=== PATIENT | female | born 1970 ===

== ENCOUNTER 2016-11-19 22:25 | Inpatient (IN) | payer OTHER ==
[2016-11-19 22:26] VITALS: BMI 26.2
[2016-11-19] MEDS ORDERED: Sodium Chloride 0.9% 1,000 ML IV STA ×2 (22:48→23:50)
[2016-11-19] MEDS ORDERED: DiphenhydrAMINE 50 mg/ml Inj IV STA (23:03)
[2016-11-19] MEDS ORDERED: Promethazine 25MG/50ML NS IVPB ONE (23:15)
[2016-11-19] MEDS ORDERED: DiphenhydrAMINE 50 mg/ml Inj ONE (23:20)
[2016-11-19 23:25] LABS: BASO % 0.4 % (0.0-2.0); EOS % 0.2 % (0.0-4.0); LYMPH # 1.3 K/uL (1.0-4.3); LYMPH % 16.1 % (20.0-40.0); MEAN CELL VOLUME 85.2 fl (81.0-99.0); MEAN CORPUSCULAR HEMOGLOBIN 29.6 pg (27.0-31.0); MEAN CORPUSCULAR HGB CONC 34.8 g/dL (33.0-37.0); MEAN PLATELET VOLUME 9.9 fl (7.2-11.7); MONO # 0.6 K/uL (0.0-0.8); MONO % 7.3 % (0.0-10.0); NRBC % 0.6 % (0.0-0.0); RBC 7.09 Mil/uL (3.80-5.20); RED CELL DISTRIBUTION WIDTH 13.7 % (11.5-14.5); WHITE BLOOD COUNT 7.9 K/uL (4.8-10.8)
[2016-11-19 23:33] LABS: ALB/GLOB RATIO 1.1 (1.0-2.1); ALBUMIN 5.2 g/dL (3.5-5.0); ALT/SGPT 36 U/L (9-52); AST/SGOT 36 U/L (14-36); BLOOD UREA NITROGEN 13 mg/dl (7-17); CALCIUM 10.4 mg/dL (8.4-10.2); GFR AFRICAN-AMERICAN > 60; GFR NON-AFRICAN AMERICAN 54; LIPASE 43 U/L (23-300)
--- NOTE | 2016-11-19 23:46 | ED PDOC ---
HPI: Abdomen Time Seen by Provider: 11/19/16 22:44 Chief Complaint (Nursing): Abdominal Pain Chief Complaint (Provider): Abdominal Pain History Per: Patient History/Exam Limitations: no limitations Onset/Duration Of Symptoms: Days (One ) Outside of [place] travel?: No Current Symptoms Are (Timing): Still Present Location Of Pain/Discomfort: Diffuse Quality Of Discomfort: Cramping Associated Symptoms: Nausea, Vomiting, Diarrhea. denies: Fever Additional Complaint(s): 45 y/o female presenting to the ED with vomiting, headache, diarrhea for one day. Patient has a past medical history of methadone dependency, opioid abuse and migraines. and is currently enrolled in a methadone program at [facility]. PT states she awoke this morning with nausea and vomiting and was unable to make it to her clinic and due to missing her methadone dosage she states she now has diarrhea. Patient reports 10 episodes of non-bloody vomiting and 10 episodes of diarrhea non bloody. Patient also report cramping pain and reports her 5 y/o son recently had a stomach virus. Past surgical history includes a Cholecystectomy. Past Medical History Reviewed: Historical Data, Nursing Documentation, Vital Signs Vital Signs: Last Vital Signs Temp 100 F H 11/20/16 02:37 Pulse 119 H 11/20/16 02:37 Resp 18 11/20/16 02:37 BP 197/142 H 11/20/16 02:37 Pulse Ox 98 11/20/16 02:37 - Surgical History Surgical History: Cholecystectomy - Family History Family History: States: Unknown Family Hx - Social History Drugs: Opiates - Immunization History Hx Tetanus Toxoid Vaccination: Yes Hx Influenza Vaccination: Yes Hx Pneumococcal Vaccination: No - Home Medications Home Medications: Ambulatory Orders Medication Instructions Recorded Methadone [Methadone] 86 mg PO DAILY 11/20/16 - Allergies Allergies/Adverse Reactions: Allergies Allergy/AdvReac Type Severity Reaction Status Date / Time oyster extract Allergy hives Verified 06/13/16 19:25 Penicillins Allergy hives Verified 06/13/16 19:25 Review of Systems ROS Statement: Except As Marked, All Systems Reviewed And Found Negative Constitutional: Negative for: Fever Cardiovascular: Negative for: Chest Pain Gastrointestinal: Positive for: Nausea, Vomiting, Abdominal Pain, Diarrhea, Other ((+)Cramping). Negative for: Hematochezia, Hematemesis Neurological: Positive for: Headache Physical Exam - Reviewed Nursing Documentation Reviewed: Yes Vital Signs Reviewed: Yes - Physical Exam Appears: Positive for: Non-toxic, No Acute Distress Head Exam: Positive for: ATRAUMATIC, NORMAL INSPECTION, NORMOCEPHALIC Skin: Positive for: Normal Color, Warm, Dry ENT: Positive for: Other ((+)Dry mucus membranes) Neck: Positive for: Normal, Painless ROM, Supple Cardiovascular/Chest: Positive for: Regular Rate, Rhythm. Negative for: Murmur Respiratory: Positive for: Normal Breath Sounds. Negative for: Respiratory Distress Gastrointestinal/Abdominal: Positive for: Tenderness ((+)Abdominal diffuse tenderness) Extremity: Positive for: Normal ROM Neurologic/Psych: Positive for: Alert, Oriented. Negative for: Motor/Sensory Deficits - Laboratory Results Result Diagrams: 11/19/16 23:20 11/19/16 23:20 - ECG O2 Sat by Pulse Oximetry: 97 (RA) Pulse Ox Interpretation: Normal Medical Decision Making Medical Decision Making: Time: 2245 Initial impression: Dependency and missed dosage of Methadone Initial plan: --EKG --DRUG SCREEN, URINE --ED URINE DIPSTICK --URINE --EKG-ED --DIPHENHYDRAMINE 25MG IV --SODIUM CHLORIDE 1,000ML IV --PROMETHAZINE 25MG SODIUM CHLORIDE 0.9% 50ML --HEPLOCK INSERTION IV --URINALYSIS 0110: Re-Evaluation: --Labs reviewed by provider and show significant for marked elevation in the patients hemoglobin level consistent with dehydration as well as reactive Erythrocytosis/Polycythemia; likely the result of patients acute dehydration. The patient will be placed on observation status for further rehydration and repeat labs in the AM. --Case discussed with Dr. 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 Scribe Attestation: Documented by Crissy Franklin, acting as a scribe for Clinton Barillas MD. Scribe Attestation: All medical record entries made by the Scribe were at my direction and personally dictated by me. I have reviewed the chart and agree that the record accurately reflects my personal performance of the history, physical exam, medical decision making, and the department course for this patient. I have also personally directed, reviewed, and agree with the discharge instructions and disposition. Disposition - Clinical Impression Clinical Impression: Erythrocytosis, Polycythemia, Dehydration, Hypertension - Patient ED Disposition Is Patient to be Admitted: Yes - Disposition Disposition Time: 00:50 Condition: FAIR - Pt Status Changed To: Hospital Disposition Of: Observation
[2016-11-20] MEDS ORDERED: Sodium Chloride 0.9% 1,000 ML IV STA (01:37)
[2016-11-20 02:56] LABS: SQUAMOUS EPITHIAL 4 /hpf (0-5); URINE BACTERIA RARE (<OCC); URINE BILIRUBIN NEGATIVE (NEGATIVE); URINE BLOOD NEGATIVE (NEGATIVE); URINE CLARITY CLOUDY (Clear); URINE COLOR YELLOW (YELLOW); URINE GLUCOSE (UA) 50 mg/dL (Normal); URINE LEUKOCYTE ESTERASE NEG Leu/uL (Negative); URINE NITRATE NEGATIVE (NEGATIVE); URINE PROTEIN >=500 mg/dL (NEGATIVE); URINE UROBILINOGEN 0.2-1.0 mg/dL (0.2-1.0)
[2016-11-20 03:12] LABS: BARBITURATES, UR NEGATIVE (NEGATIVE); BENZODIAZEPINES, UR NEGATIVE (NEGATIVE); OPIATES, UR NEGATIVE (NEGATIVE); PHENCYCLIDINE, UR NEGATIVE (NEGATIVE)
[2016-11-20] MEDS ORDERED: Labetalol 5mg/ml (4ml) ONE (04:27)
[2016-11-20] MEDS: Labetalol 5 mg/ml Inj 20ML IVP STA ×2 (04:34→04:53)
[2016-11-20] MEDS ORDERED: Labetalol 5mg/ml (4ml) IVP STA (04:39)
[2016-11-20] MEDS ORDERED: Potassium CL 10mEq/100ml 100 ML IVPB SCH (06:00)
[2016-11-20] MEDS: Sodium Chloride 0.45% 1,000 ML IV SCH ×2 (06:25→13:15)
[2016-11-20 06:31] LABS: BASO % 0.5 % (0.0-2.0); HEMOGLOBIN 19.9 g/dL (12.0-16.0); LYMPH # 1.1 K/uL (1.0-4.3); MEAN CELL VOLUME 85.9 fl (81.0-99.0); MEAN CORPUSCULAR HGB CONC 34.9 g/dL (33.0-37.0); MONO # 0.4 K/uL (0.0-0.8); MONO % 7.2 % (0.0-10.0); NEUT # 4.6 K/uL (1.8-7.0); NEUT % 74.3 % (50.0-75.0); NRBC % 2.4 % (0.0-0.0); RBC 6.62 Mil/uL (3.80-5.20); RED CELL DISTRIBUTION WIDTH 13.6 % (11.5-14.5); WHITE BLOOD COUNT 6.2 K/uL (4.8-10.8)
[2016-11-20 06:40] LABS: BLOOD UREA NITROGEN 13 mg/dl (7-17); CALCIUM 9.3 mg/dL (8.4-10.2); GFR AFRICAN-AMERICAN > 60; GFR NON-AFRICAN AMERICAN > 60
[2016-11-20] MEDS ORDERED: Potassium Chloride 20 mEq ER Tab PO STA (06:59)
--- NOTE | 2016-11-20 07:47 | CARD ---
APPROVED REPORT EKG Measurement Heart [id number] <Conclusion> Sinus tachycardia Right atrial enlargement Nonspecific ST and T wave abnormality Prolonged QTc Abnormal ECG
[2016-11-20] MEDS ORDERED: Labetalol 5 mg/ml Inj 20ML IVP STA (12:48)
[2016-11-20] MEDS ORDERED: Sodium Chloride 0.45% 1,000 ML IV SCH (15:35)
[2016-11-20] MEDS: Sodium Chloride 0.9% 1,000 ML IV SCH ×7 (16:00→21:00)
[2016-11-20 16:57] LABS: CALCIUM 9.5 mg/dL (8.4-10.2)
[2016-11-20 17:07] LABS: CK-MB 1.66 ng/mL (0.0-3.38)
--- NOTE | 2016-11-20 17:12 | PCM.RRTMUL ---
<Matilde Leon - Last Filed: 11/20/16 16:56> [employer]ER [employer] Nurse Assessment - Vital Signs Blood Pressure:: 70/43 Pulse Rate:: 84 Respiratory Rate:: 20 Temperature:: 97.9 F - [place] Coma Scale Coma Scale Eye Opening:: Spontaneous Coma Scale Motor:: Obeys Commands Movement Coma Scale Verbal:: Oriented Coma Scale Total:: 15 I.Reason for [employer]OUNDER [employer] C[employer] - A) Acute Change in Patient: Subjective: [employer]ER [employer] Time: 4:00pm [employer]ER [employer]TO Location: 405 bed 1 [employer] Reason: Low Blood Pressure S: [employer]OUNDER [employer] C[employer] called by RN bc of low blood pressure (systolic 40's). On arrival, pt noted to be complaining of weakness, dizziness, and dull abdominal pain. O: [employer] Vitals (4:05): T 97.9, HR 92, BP 57/43, 94% on Rm Air BP (4:20) 65/46 BP (4:43) 72/40 General: Patient was seen lying in bed and calm. Patient was alert and oriented to person, place, and time. Not in any acute distress. Eyes: Pinpoint pupils, EOM in tact Cardiac: Regular rate and rhythm, normal S1, S2. No murmurs Lung: Not in any respiratory distress. Good air entry bilaterally. No rales or wheezing Abdomen: Soft. Tender to palpation in lower quadrants. Normal bowel sounds. No gaurding, rigidity, or rebound tenderness. No organomegaly. Extremities: No pedal edema, pulsus palpable +2, good capillary refill [employer] Interventions: EKG 2 Liters of NS (bolus) Labs: Troponin, CK-MB, MG, BNP A/P: 45 yo F presented with hypotension associated with dizziness and abdominal pain. 1. Likely secondary to medication and dehydration -Transfer to the ICU -Follow labs [employer] End Time: 5:00 [employer] Resident: Dr. Leon [employer]ER [employer] CTO Leader: Dr. Mckeon <Cece Mckeon - Last Filed: 11/20/16 18:20> Attending/Attestation - Attestation I have personally seen and examined this patient.: Yes I have fully participated in the care of the patient.: Yes I have reviewed all pertinent clinical information, including history, physical exam and plan: Yes Notes (Text): [employer]OUNDER [employer] CTO called bec of Hypotension I responded to the CO FOUNDER AND CTO with the residents Pt montilla a known hx of Polycythemia, Opiod Abuse on Methadone BP 60 systolic Pt is alert, oriented, not in distress Lungs : clear Heart; reg rhythm abd: Soft, nontender Ext; no edema, hands cold to touch Pt received IV Hydralazine 10 mg at 9:30 am , IV Labetalol 20mg and Clonidine 0.2mg at 13:15 for HTN ( BP 151/108 ) rpt BP at 4pm was 70/40 Hypotension prob sec to antihypertensive effect, need to r/o other etiology - IVF bolus - NS - insert Quiroz cath - d/c all antihypertensive - EKG - noted ST depression in lateral lead - Troponi, CKMB, BMP, CBC, Mg, Phos, - ICU consult- Dr Lao- discussed case - will transfer pt to ICU for close monitoring - PMD - Dr Cornell informed of event
--- NOTE | 2016-11-20 17:14 | CP.PCM.CON ---
History of Present Illness - History of Present Illness History of Present Illness: 45yo F. 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 Rapid response called for hypotension. Most likely medication induced, received hydralazine IV, labetalol IV and then clonidine PO for hypertension. On admission patient complained of n/v/d, and that her son also had these symptoms. She also states she missed a few methadone doses. Possible combination of viral gastroenteritis with withdrawal symptoms. Review of Systems - Review of Systems All systems: reviewed and no additional remarkable complaints except - Gastrointestinal Gastrointestinal: Diarrhea. absent: Abdominal Pain - Neurological Neurological: Other Visual Disturbances (spots in front of eyes) Past Patient History - Past Medical History & Family History Past Medical History?: Yes - Past Social History Smoking Status: Former Smoker - CARDIAC Hx Heart Murmur: Yes Hx Hypertension: Yes - NEUROLOGICAL Hx Migraine: Yes - RENAL Hx Chronic Kidney Disease: No - MUSCULOSKELETAL/RHEUMATOLOGICAL Hx Falls: No - PSYCHIATRIC Hx Substance Use: Yes - SURGICAL HISTORY Hx Cholecystectomy: Yes - ANESTHESIA Hx Anesthesia: Yes Hx Anesthesia Reactions: No Meds Allergies/Adverse Reactions: Allergies Allergy/AdvReac Type Severity Reaction Status Date / Time oyster extract Allergy hives Verified 06/13/16 19:25 Penicillins Allergy hives Verified 06/13/16 19:25 - Medications Medications: Current Medications Heparin Sodium (Porcine) (Heparin) 5,000 units SC Q8 TIERA PRN Reason: Protocol Last Admin: 11/20/16 13:13 Dose: Not Given Sodium Chloride (Sodium Chloride 0.45%) 1,000 mls @ 80 mls/hr IV .[id number] [facility] Stop: 11/21/16 15:35 Methadone HCl (Methadone) 5 mg PO DAILY [facility] Last Admin: 11/20/16 10:26 Dose: 5 mg Methadone HCl (Methadone) 80 mg PO DAILY [facility] Ondansetron HCl (Zofran Inj) 4 mg IV Q6 PRN PRN Reason: Nausea/Vomiting Physical Exam - Head Exam Head Exam: ATRAUMATIC, NORMAL INSPECTION, NORMOCEPHALIC - Eye Exam Eye Exam: EOMI, Normal appearance, PERRL - ENT Exam ENT Exam: Mucous Membranes Moist, Normal Exam - Respiratory Exam Respiratory Exam: Clear to Auscultation Bilateral, NORMAL BREATHING PATTERN - Cardiovascular Exam Cardiovascular Exam: REGULAR RHYTHM - GI/Abdominal Exam GI & Abdominal Exam: Normal Bowel Sounds, Soft. absent: Tenderness - Neurological Exam Neurological exam: Alert, CN II-XII Intact, Oriented x3, Reflexes Normal - Psychiatric Exam Psychiatric exam: Normal Affect, Normal Mood Results - Vital Signs Recent Vital Signs: Last Vital Signs Temp 97.9 F 11/20/16 15:58 Pulse 84 11/20/16 15:58 Resp 20 11/20/16 15:58 BP 70/43 L 11/20/16 15:58 Pulse Ox 99 11/20/16 15:58 - Labs Result Diagrams: 11/20/16 06:10 11/20/16 16:29 Labs: Laboratory Results - last 24 hr 11/20/16 11/20/16 16:29 16:30 Sodium 140 Potassium 4.0 Chloride 107 Carbon Dioxide 22 Anion Gap 16 BUN 20 H Creatinine 1.5 H Est GFR ( Amer) 46 Est GFR (Non-Af Amer) 38 Random Glucose 154 H Calcium 9.5 Magnesium 1.6 Assessment & Plan (1) Drug-induced hypotension Assessment and Plan: 45yo F. 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 Rapid response called for hypotension. drug induced hypotension and infectious gastroenteritis. Neuro: alert and oriented x 3, feels groggy. Patient on methadone to prevent opioid withdrawal. Pulm: no acute issues, breathing spontaneously on room air. CV: drug induced hypotension. Hold all anti-hypertensives for now. Hem: polycythemia possibly dehydration, hemoconcentrated. patient has had similar presentation before. Will have to observe h/h after adequate volume resuscitation. Negative JAK2 previously. Renal: acute kidney injury, will monitor. fluid resuscitation with 4L fluid boluses, then NS@150. Endo: no acute issues GI: NPO for now ID: Patient most likely had an infectious gastroenteritis, possibly viral. DVT proph - heparin sq GI proph - not currently indicated singh for strict I/O's during acute illness Code status - full code Critical Care Time spent 35 minutes The documented time is cumulative and includes review of patient data/exams/labs /chart review and examination of the patient on rounds and throughout the day; time is exclusive of any procedures or teaching time. Status: Acute
[2016-11-20 17:17] LABS: TROPONIN I 0.182 ng/mL (0.00-0.120)
[2016-11-20 17:33] LABS: HEMOGLOBIN 13.2 g/dL (12.0-16.0); MEAN CELL VOLUME 87.2 fl (81.0-99.0); MEAN CORPUSCULAR HEMOGLOBIN 29.4 pg (27.0-31.0); MEAN CORPUSCULAR HGB CONC 33.7 g/dL (33.0-37.0); RBC 4.5 Mil/uL (3.80-5.20); RED CELL DISTRIBUTION WIDTH 13.9 % (11.5-14.5); WHITE BLOOD COUNT 4.8 K/uL (4.8-10.8)
[2016-11-20] MEDS ORDERED: Albumin Human 5% (12.5 gm/250 ml) IV ONE (18:00)
[2016-11-20 18:05] LABS: SQUAMOUS EPITHIAL 17 /hpf (0-5); URINE BACTERIA RARE (<OCC); URINE BILIRUBIN NEGATIVE (NEGATIVE); URINE BLOOD NEGATIVE (NEGATIVE); URINE CLARITY CLOUDY (Clear); URINE COLOR AMBER (YELLOW); URINE GLUCOSE (UA) 50 mg/dL (Normal); URINE LEUKOCYTE ESTERASE NEG Leu/uL (Negative); URINE NITRATE NEGATIVE (NEGATIVE); URINE PROTEIN >=500 mg/dL (NEGATIVE); URINE UROBILINOGEN 0.2-1.0 mg/dL (0.2-1.0)
[2016-11-20] MEDS ORDERED: Sodium Chloride 0.9% 1,000 ML IV SCH (18:30)
--- NOTE | 2016-11-20 23:38 | CP.PCM.HP ---
History of Present Illness - History of Present Illness History of Present Illness: CC: Vomiting and Diarrhea. History of Present Illness: A 45y/o Female presenting to the ED with vomiting, headache, diarrhea for one day. Patient has a past medical history of methadone dependency, opioid abuse and migraines. and is currently enrolled in a methadone program at [facility]. PT states she awoke this morning with nausea and vomiting and was unable to make it to her clinic and due to missing her methadone dosage she states she now has diarrhea. Patient reports 10 episodes of non-bloody vomiting and 10 episodes of diarrhea non bloody. Patient also report cramping pain and reports her 5 y/o son recently had a stomach virus. Past surgical history includes a Cholecystectomy. In the ER, she had Hypertensive emergency, and received IV Lebatolol. Then after again she received IV Hydralazine, and after about 6hrs she received Labetalol iv againfor accelerated HTN. She was given Clonidine po. 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 Present on Admission - Present on Admission Any Indicators Present on Admission: No History of DVT/PE: No History of Uncontrolled Diabetes: No Urinary Catheter: No Decubitus Ulcer Present: No Review of Systems - Review of Systems All systems: reviewed and no additional remarkable complaints except Past Patient History - Past Medical History & Family History Past Medical History?: Yes Past Family History: Reviewed and not pertinent - Past Social History Smoking Status: Former Smoker Alcohol: None Drugs: Denies - CARDIAC Hx Heart Murmur: Yes Hx Hypertension: Yes - NEUROLOGICAL Hx Migraine: Yes - RENAL Hx Chronic Kidney Disease: No - MUSCULOSKELETAL/RHEUMATOLOGICAL Hx Falls: No - PSYCHIATRIC Hx Substance Use: Yes - SURGICAL HISTORY Hx Cholecystectomy: Yes - ANESTHESIA Hx Anesthesia: Yes Hx Anesthesia Reactions: No Meds Home Medications: Home Medication List Medication Instructions Recorded Confirmed Type Acetaminophen/Butalbital/Caf 1 tab PO Q4 PRN #20 tab 11/26/16 Rx [Fioricet] Aspirin [Adult Low Dose Aspirin EC] 81 mg PO DAILY #30 nicolas. 11/26/16 Rx Atorvastatin [Lipitor] 10 mg PO DAILY #30 tab 11/26/16 Rx Lisinopril [Zestril] 10 mg PO DAILY #30 tab 11/26/16 Rx Allergies/Adverse Reactions: Allergies Allergy/AdvReac Type Severity Reaction Status Date / Time oyster extract Allergy hives Verified 06/13/16 19:25 Penicillins Allergy hives Verified 06/13/16 19:25 Physical Exam - Constitutional Appears: Well - Head Exam Head Exam: ATRAUMATIC, NORMAL INSPECTION, NORMOCEPHALIC - Eye Exam Eye Exam: EOMI, Normal appearance, PERRL Pupil Exam: NORMAL ACCOMODATION, PERRL - ENT Exam ENT Exam: Mucous Membranes Moist, Normal Exam - Neck Exam Neck exam: Positive for: Full Rom, Normal Inspection - Respiratory Exam Respiratory Exam: Clear to Auscultation Bilateral, NORMAL BREATHING PATTERN - Cardiovascular Exam Cardiovascular Exam: REGULAR RHYTHM, +S1, +S2 - GI/Abdominal Exam GI & Abdominal Exam: Normal Bowel Sounds, Soft. absent: Tenderness - Extremities Exam Extremities exam: Positive for: normal inspection - Back Exam Back exam: NORMAL INSPECTION. absent: CVA tenderness (L), CVA tenderness (R) - Neurological Exam Neurological exam: Alert, CN II-XII Intact, Normal Gait, Oriented x3, Reflexes Normal - Psychiatric Exam Psychiatric exam: Normal Affect, Normal Mood - Skin Skin Exam: Dry, Intact, Normal Color, Warm Results - Vital Signs Recent Vital Signs: Last Vital Signs Temp 98.1 F 11/20/16 20:00 Pulse 85 11/20/16 22:00 Resp 18 11/20/16 22:00 BP 92/52 L 11/20/16 22:00 Pulse Ox 100 11/20/16 22:00 - Labs Result Diagrams: 11/26/16 05:10 11/26/16 05:20 Labs: Laboratory Results - last 24 hr 11/20/16 11/20/16 11/20/16 16:29 16:30 17:05 WBC 4.8 RBC 4.50 Hgb 13.2 D Hct 39.2 MCV 87.2 MCH 29.4 MCHC 33.7 RDW 13.9 Plt Count 138 Sodium 140 Potassium 4.0 Chloride 107 Carbon Dioxide 22 Anion Gap 16 BUN 20 H Creatinine 1.5 H Est GFR ( Amer) 46 Est GFR (Non-Af Amer) 38 Random Glucose 154 H Calcium 9.5 Magnesium 1.6 CK-MB (Mass) 1.66 Troponin I 0.1820 H* Urine Color Urine Clarity Urine pH Ur Specific [place] Urine Protein Urine Glucose (UA) Urine Ketones Urine Blood Urine Nitrate Urine Bilirubin Urine Urobilinogen Ur Leukocyte Esterase Urine RBC (Auto) Urine Microscopic WBC Ur Squamous Epith Cells Urine Bacteria 11/20/16 17:49 WBC RBC Hgb Hct MCV MCH MCHC RDW Plt Count Sodium Potassium Chloride Carbon Dioxide Anion Gap BUN Creatinine Est GFR ( Amer) Est GFR (Non-Af Amer) Random Glucose Calcium Magnesium CK-MB (Mass) Troponin I Urine Color Tia Urine Clarity Cloudy Urine pH 7.0 Ur Specific [place] 1.024 Urine Protein >=500 Urine Glucose (UA) 50 Urine Ketones Trace Urine Blood Negative Urine Nitrate Negative Urine Bilirubin Negative Urine Urobilinogen 0.2-1.0 Ur Leukocyte Esterase Neg Urine RBC (Auto) 1 Urine Microscopic WBC 4 Ur Squamous Epith Cells 17 H Urine Bacteria Rare - EKG Data EKG shows normal: Sinus rhythm Rate: Tachycardia - EKG Data Interpretation: Other EKG comments: Prolonged QTc. Non-specific St-T changes. - Imaging and Cardiology CT scan - head Status: Report reviewed by me Assessment & Plan (1) Drug-induced hypotension Assessment and Plan: IVF Bolus IVF Hold BP Medication ICU Transfer Status: Acute (2) Opioid withdrawal Assessment and Plan: On Methadone Program Status: Chronic (3) Prolonged Q-T interval on ECG Assessment and Plan: Most Likely due to Methadone Program Status: Acute
[2016-11-21] MEDS: Sodium Chloride 0.9% 1,000 ML IV SCH ×2 (00:30→07:10)
[2016-11-21 05:15] LABS: HEMOGLOBIN 11.5 g/dL (12.0-16.0); MEAN CELL VOLUME 88.8 fl (81.0-99.0); MEAN CORPUSCULAR HEMOGLOBIN 29.6 pg (27.0-31.0); MEAN CORPUSCULAR HGB CONC 33.4 g/dL (33.0-37.0); RBC 3.87 Mil/uL (3.80-5.20); RED CELL DISTRIBUTION WIDTH 14.2 % (11.5-14.5); WHITE BLOOD COUNT 7.2 K/uL (4.8-10.8)
[2016-11-21 05:25] LABS: BLOOD UREA NITROGEN 17 mg/dl (7-17); CALCIUM 7.6 mg/dL (8.4-10.2); GFR AFRICAN-AMERICAN > 60; GFR NON-AFRICAN AMERICAN > 60
--- NOTE | 2016-11-21 07:35 | CARD ---
APPROVED REPORT EKG Measurement Heart [id number] <Conclusion> Normal sinus rhythm Right atrial enlargement Nonspecific ST abnormality Prolonged QT Abnormal ECG
--- NOTE | 2016-11-21 07:45 | CP.CCUPN ---
<Paulino Montano - Last Filed: 11/21/16 12:37> CCU Subjective - Physician Review Subjective (Free Text): 11/21/16 8:00 AM Patient seen and examined bedside. Patient was transferred from telemetry to ICU yesterday afternoon for sustained hypotension secondary to HTN meds and also secondary dehydration. Patient reports in the morning right hemicraneal headache 8/10 in intensity, pulsating, not alleviated after tylenol 650 mg 2 hours ago. she also reports diffuse abd cramps. Patient denies fever, N/V/D, chest pain, SOB. As per patient she has not had more diarrhea or vomiting after friday, the day of admission. Patient reports missed methadone dose on friday when started with chills, sweating and sudden onset of vomiting and diarrhea only x 1 day. as per Detox clinic she also missed dose on last friday. CCU Objective - Vital Signs / Intake & Output Vital Signs (Last 4 hours): Vital Signs Temp Pulse Resp BP Pulse Ox 11/21/16 07:00 88 19 118/72 98 11/21/16 06:00 77 15 110/57 L 99 11/21/16 05:00 78 14 93/73 L 100 11/21/16 04:00 98.7 F 84 19 103/63 95 Intake and Output (Last 8hrs): Intake & Output 11/20/16 11/21/16 11/21/16 22:59 06:59 14:59 Intake Total 8880 1490 Output Total 75 650 Balance 8805 840 Intake: IV 8000 1200 Oral 680 240 Albumin 200 50 Output: Urine 75 650 Urethral (Quiroz) 75 650 Other: # Voids Urine, Voided 2 - Physical Exam Head: Positive for: Atraumatic, Normocephalic Pupils: Positive for: PERRL Conjunctiva: Positive for: Normal Mouth: Positive for: Moist Mucous Membranes Neck: Positive for: Normal Range of Motion Respiratory/Chest: Positive for: Clear to Auscultation, Good Air Exchange. Negative for: Wheezes, Rales, Rhonchi Cardiovascular: Positive for: Regular Rate and Rhythm, Normal S1, S2 Abdomen: Positive for: Normal Bowel Sounds. Negative for: Tenderness, Distention Upper Extremity: Positive for: Normal Inspection Lower Extremity: Positive for: Normal Inspection. Negative for: Edema, CALF TENDERNESS Neurological: Positive for: Speech Normal, Motor Func Grossly Intact Skin: Positive for: Warm, Normal Color Psychiatric: Positive for: Alert, Oriented x 3 - Medications Active Medications: Active Medications Generic Name Dose Route Start Last Admin Trade Name Freq PRN Reason Stop Dose Admin Heparin Sodium (Porcine) 5,000 units 11/20/16 17:30 11/21/16 05:33 Heparin SC 5,000 units Q12H TIERA Administration Protocol Sodium Chloride 1,000 mls @ 150 mls/hr 11/20/16 17:30 11/21/16 07:10 Sodium Chloride 0.9% IV 11/21/16 17:23 150 mls/hr .Q6H40M TIERA Administration Sodium Chloride 1,000 mls @ 999 mls/hr 11/20/16 18:30 11/20/16 18:41 Sodium Chloride 0.9% IV 11/21/16 18:20 999 mls/hr .Q1H1M TIERA Administration Sodium Chloride 1,000 mls @ 999 mls/hr 11/20/16 16:00 11/20/16 20:03 Sodium Chloride 0.9% IV 11/21/16 19:01 999 mls/hr .Q1H1M TIERA Administration Methadone HCl 5 mg 11/20/16 10:00 11/20/16 10:26 Methadone PO 5 mg DAILY TIERA Administration Methadone HCl 80 mg 11/20/16 11:51 Methadone PO DAILY TIERA Ondansetron HCl 4 mg 11/20/16 01:37 Zofran Inj IV Q6 PRN Nausea/Vomiting - Patient Studies Lab Studies: Lab Studies 11/21/16 11/21/16 11/20/16 Range/Units 04:50 04:50 17:49 WBC 7.2 (4.8-10.8) K/uL RBC 3.87 (3.80-5.20) Mil/uL Hgb 11.5 L (12.0-16.0) g/dL Hct 34.3 (34.0-47.0) % MCV 88.8 (81.0-99.0) fl MCH 29.6 (27.0-31.0) pg MCHC 33.4 (33.0-37.0) g/dL RDW 14.2 (11.5-14.5) % Plt Count 110 L D (130-400) K/uL Sodium 142 (132-148) mmol/l Potassium 3.9 (3.6-5.0) MMOL/L Chloride 115 H (98-107) mmol/L Carbon Dioxide 23 (22-30) mmol/L Anion Gap 8 L (10-20) BUN 17 (7-17) mg/dl Creatinine 1.0 (0.7-1.2) mg/dL Est GFR ( Amer) > 60 Est GFR (Non-Af Amer) > 60 Random Glucose 87 (65-105) mg/dL Calcium 7.6 L (8.4-10.2) mg/dL Magnesium (1.6-2.3) MG/DL CK-MB (Mass) (0.0-3.38) ng/mL Troponin I 1.0800 H* (0.00-0.120) ng/mL Urine Color Tia (YELLOW) Urine Clarity Cloudy (Clear) Urine pH 7.0 (5.0-8.0) Ur Specific [place] 1.024 (1.003-1.030) Urine Protein >=500 (NEGATIVE) mg/dL Urine Glucose (UA) 50 (Normal) mg/dL Urine Ketones Trace (NEGATIVE) mg/dL Urine Blood Negative (NEGATIVE) Urine Nitrate Negative (NEGATIVE) Urine Bilirubin Negative (NEGATIVE) Urine Urobilinogen 0.2-1.0 (0.2-1.0) mg/dL Ur Leukocyte Esterase Neg (Negative) Vinicio/uL Urine RBC (Auto) 1 (0-3) /hpf Urine Microscopic WBC 4 (0-5) /hpf Ur Squamous Epith Cells 17 H (0-5) /hpf Urine Bacteria Rare (<OCC) 11/20/16 11/20/16 11/20/16 Range/Units 17:05 16:30 16:29 WBC 4.8 (4.8-10.8) K/uL RBC 4.50 (3.80-5.20) Mil/uL Hgb 13.2 D (12.0-16.0) g/dL Hct 39.2 (34.0-47.0) % MCV 87.2 (81.0-99.0) fl MCH 29.4 (27.0-31.0) pg MCHC 33.7 (33.0-37.0) g/dL RDW 13.9 (11.5-14.5) % Plt Count 138 (130-400) K/uL Sodium 140 (132-148) mmol/l Potassium 4.0 (3.6-5.0) MMOL/L Chloride 107 (98-107) mmol/L Carbon Dioxide 22 (22-30) mmol/L Anion Gap 16 (10-20) BUN 20 H (7-17) mg/dl Creatinine 1.5 H (0.7-1.2) mg/dL Est GFR ( Amer) 46 Est GFR (Non-Af Amer) 38 Random Glucose 154 H (65-105) mg/dL Calcium 9.5 (8.4-10.2) mg/dL Magnesium 1.6 (1.6-2.3) MG/DL CK-MB (Mass) 1.66 (0.0-3.38) ng/mL Troponin I 0.1820 H* (0.00-0.120) ng/mL Urine Color (YELLOW) Urine Clarity (Clear) Urine pH (5.0-8.0) Ur Specific [place] (1.003-1.030) Urine Protein (NEGATIVE) mg/dL Urine Glucose (UA) (Normal) mg/dL Urine Ketones (NEGATIVE) mg/dL Urine Blood (NEGATIVE) Urine Nitrate (NEGATIVE) Urine Bilirubin (NEGATIVE) Urine Urobilinogen (0.2-1.0) mg/dL Ur Leukocyte Esterase (Negative) Vinicio/uL Urine RBC (Auto) (0-3) /hpf Urine Microscopic WBC (0-5) /hpf Ur Squamous Epith Cells (0-5) /hpf Urine Bacteria (<OCC) Laboratory Results - last 24 hr 11/20/16 11/20/16 11/20/16 16:29 16:30 17:05 WBC 4.8 RBC 4.50 Hgb 13.2 D Hct 39.2 MCV 87.2 MCH 29.4 MCHC 33.7 RDW 13.9 Plt Count 138 Sodium 140 Potassium 4.0 Chloride 107 Carbon Dioxide 22 Anion Gap 16 BUN 20 H Creatinine 1.5 H Est GFR ( Amer) 46 Est GFR (Non-Af Amer) 38 Random Glucose 154 H Calcium 9.5 Magnesium 1.6 CK-MB (Mass) 1.66 Troponin I 0.1820 H* Urine Color Urine Clarity Urine pH Ur Specific [place] Urine Protein Urine Glucose (UA) Urine Ketones Urine Blood Urine Nitrate Urine Bilirubin Urine Urobilinogen Ur Leukocyte Esterase Urine RBC (Auto) Urine Microscopic WBC Ur Squamous Epith Cells Urine Bacteria 11/20/16 11/21/16 11/21/16 17:49 04:50 04:50 WBC 7.2 RBC 3.87 Hgb 11.5 L Hct 34.3 MCV 88.8 MCH 29.6 MCHC 33.4 RDW 14.2 Plt Count 110 L D Sodium 142 Potassium 3.9 Chloride 115 H Carbon Dioxide 23 Anion Gap 8 L BUN 17 Creatinine 1.0 Est GFR ( Amer) > 60 Est GFR (Non-Af Amer) > 60 Random Glucose 87 Calcium 7.6 L Magnesium CK-MB (Mass) Troponin I 1.0800 H* Urine Color Tia Urine Clarity Cloudy Urine pH 7.0 Ur Specific [place] 1.024 Urine Protein >=500 Urine Glucose (UA) 50 Urine Ketones Trace Urine Blood Negative Urine Nitrate Negative Urine Bilirubin Negative Urine Urobilinogen 0.2-1.0 Ur Leukocyte Esterase Neg Urine RBC (Auto) 1 Urine Microscopic WBC 4 Ur Squamous Epith Cells 17 H Urine Bacteria Rare EKG/Cardiology Studies: Cardiology / EKG Studies 11/21/16 EKG [ELECTROCARDIOGRAM] Routine Comment: Mode Of Transportation: Reason For Exam: Troponin elevation Review of Systems - Constitutional Constitutional: Chills, Sweats - Cardiovascular Cardiovascular: absent: Chest Pain, Dyspnea - Respiratory Respiratory: absent: Cough, Dyspnea - Gastrointestinal Gastrointestinal: Abdominal Pain, Cramping Critical Care Progress Note - Ventilator Checklist DVT Prophylaxis: Yes Assessment/Plan - Assessment and Plan (Free Text) Plan: 45 yo, f, Pmhx/o methadone dependency, opioid abuse and migraines, currently enrolled in a methadone program at [facility], who presented to [facility] with sudden vomiting, diarrhea, dehydration, Hypertensive urgency. patient transferred to ICU secondary to hypotension by antihypertensive meds. Assessment/Plan 1) Drug Induced Hypotension -secondary to antihypertensive medications hydralazine, clonidine,Labetalol -controlled -s/p IV fluids 4 liters -s/p stopped BP meds -BP normal 118/72 2) NSTEMI -secondary to sustained hypotension -EKG showed ST depression V4,V5,V6 -troponin serial high 1.08. pending third troponin -ASA 325 mg PO daily -Metoprolol 12.5 mg PO Q 12h to start PM dose -Lovenox therapeutic 60 mg Q12h -Echo:LV nl size, thikness and wall motion. EF 65-70%. RA mod dilated, mod to sev TR.mild Pulmonary HTN. -CXR oredered -Cardiology consult suggested 3) Opiods withdrawal -On methadone program at 86 mg dose. skipped dose x 2 days -withdrawal symptoms on admission -COW score 3 -consider clonidine for HTN 2to withdrawal -f/u HIV, Hep B, Hep C 4) Migraine Headache -Hx/o migraine and controlled with Fioricet -Fioricet 1 tab q4h PRN not to exceed 6 tab day 5)Thrombocytopenia -possible secondary to meds,infection platelets 110 -HIV test -f/u CBC 6) DVT Prophylaxis -Heparin DC due to patient recovered normal renal function -Lovenox 60 mg Q 12h <Antonio Thomas - Last Filed: 11/21/16 16:21> Assessment/Plan - Assessment and Plan (Free Text) Assessment: Attestation: Patient seen and examined at the bedside with Resident Dr. Julio Montano, and I agree with his outline of plans and management as documented and discussed on AM rounds reflecting my review of all applicable clinical data, and participation in the care of the patient throughout the day in ICU; today, November 21, 2016.
[2016-11-21] MEDS ORDERED: Apap-Butalbital-Caffeine 325-50-40mg Tab PO PRN (11:01)
--- NOTE | 2016-11-21 11:44 | CARD ---
APPROVED REPORT EXAM: Two-dimensional and M-mode echocardiogram with Doppler and color Doppler. Other Information Quality : GoodRhythm : NSR INDICATION LV Function:SystolicDiastolic 2D DIMENSIONS IVSd1.29 (0.7-1.1cm)LVDd3.56 (3.9-5.9cm) LVOT Diameter2.09 (1.8-2.4cm)PWd1.46 (0.7-1.1cm) IVSs1.59 (0.8-1.2cm)LVDs2.54 (2.5-4.0cm) FS (%) 28.6 %PWs1.68 (0.8-1.2cm) M-Mode DIMENSIONS Left Atrium (MM)2.91 (2.5-4.0cm)IVSd1.15 (0.7-1.1cm) Aortic Root2.85 (2.2-3.7cm)LVDd4.15 (4.0-5.6cm) Aortic Cusp Exc.1.76 (1.5-2.0cm)PWd1.21 (0.7-1.1cm) IVSs1.82 cmFS (%) 40 % LVDs2.50 (2.0-3.8cm)PWs1.79 cm Mitral Valve MV E Bimglhuk19.4cm/sMV DECEL [id number] A Umbxbdcc72.2cm/s MV SUQ52riI/A ratio1.2MVA (PHT)4.26cm2 TDI Lateral E' Peak V12.14cm/sMedial E' Peak V7.82cm/sE/Lateral E'5.9 E/Medial E'9.1 Pulmonary Valve PV Peak Peqmlzbk25.0cm/s Tricuspid Valve TR Peak [id number]/sRAP [id number] Peak Gr.23mmHg [id number] LEFT VENTRICLE The left ventricle is normal size. There is normal left ventricular wall thickness. Left ventricle systolic function is normal. The Ejection Fraction is 65-70%. There is normal LV segmental wall motion. Transmitral Doppler flow pattern is Grade I-abnormal relaxation pattern. RIGHT VENTRICLE The right ventricle is normal size. There is normal right ventricular wall thickness. The right ventricular systolic function is normal. ATRIA The left atrium size is normal. The right atrium is moderately dilated. AORTIC VALVE The aortic valve is normal in structure and function. No aortic regurgitation is present. There is no aortic valvular stenosis. MITRAL VALVE The mitral valve is normal in structure and function. There is no evidence of mitral valve prolapse. There is no mitral valve stenosis. There is no mitral valve regurgitation noted. TRICUSPID VALVE The tricuspid valve is normal in structure. There is moderate to severe tricuspid regurgitation. Right ventricular systolic pressure is estimated at 33 mmHg. There is mild pulmonary hypertension. PULMONIC VALVE The pulmonary valve is normal in structure and function. There is no pulmonic valvular regurgitation. GREAT VESSELS The aortic root is normal in size. The IVC is dilated. The IVC collapses <50% with inspiration. PERICARDIAL EFFUSION The pericardium appears normal. <Conclusion> The left ventricle is normal size. There is normal left ventricular wall thickness. There is normal LV segmental wall motion. Left ventricle systolic function is normal. The Ejection Fraction is 65-70%. Transmitral Doppler flow pattern is Grade I-abnormal relaxation pattern. The right atrium is moderately dilated. There is moderate to severe tricuspid regurgitation. There is mild pulmonary hypertension. The IVC is dilated. The IVC collapses <50% with inspiration.
--- NOTE | 2016-11-21 11:58 | RAD ---
HISTORY: Right Atrial hypertrophy COMPARISON: No prior. FINDINGS: LUNGS: No acute infiltrate is identified with the trachea midline in position. No pulmonary vascular derangement. PLEURA: No significant pleural effusion identified, no pneumothorax apparent. CARDIOVASCULAR: Cardiomegaly is noted. OSSEOUS STRUCTURES: No significant abnormalities. VISUALIZED UPPER ABDOMEN: Normal. OTHER FINDINGS: None. IMPRESSION: No acute infiltrate or pleural effusion. Cardiomegaly is noted. No pulmonary vascular derangement associated.
[2016-11-21] MEDS ORDERED: Enoxaparin 60 mg Syringe SC SCH (18:00)
--- NOTE | 2016-11-21 19:22 | CP.PCM.CON ---
History of Present Illness - History of Present Illness History of Present Illness: 45 Y/O FEMALE WITH MULTIPLE SYNCOPAL EPISODES AT HOME. BOUGHT TO ER, PT NOTED TO BE HYPOTENSIVE. WHILE ON FLOOR RECEIVING FLUIDS AUTOM[employer]IVE SALESPERSON CALLED FOR LOC. PT WAS VOLUME DEPLETED. TRANSFERED TO ICU FOR IVF AND BP MANAGEMENT. TROP WERE DRAWN AND POSITIVE. EKG DOES NOT REVEAL ST SEG DEPRESSION OR ELEVATION. EKG DOES REVEAL A PROLONGED QTC OF 590MS. PT DENIES CP, PALP, SOB, ORTHOPNEA, PND, JAMSHID. NO F/C/N/V. PT DENIES A HX OF SYNCOPE, PRIOR TO THESE LEADING TO ADMISSION. SHE DENIES DRUG OR ETOH USE. BNP IS MILDLY ELEVATED. ECHO REVEALS TR AND PHTN SHE DOES COMPLAIN OF RECENT LLE CRAMPING AND PAIN. Review of Systems - Constitutional Constitutional: absent: As Per HPI, Anorexia, Chills, Daytime Sleepiness, Excessive Sweating, Fatigue, Fever, Frequent Falls, Headache, Increased Appetite , Lethargy, Malaise, Night Sweats, Snoring, Sleep Apnea, Weight Gain, Weight Loss, Weakness, Other - EENT Eyes: absent: As Per HPI, Blind Spots, Blurred Vision, Change in Vision, Decreased Night Vision, Diplopia, Discharge, Dry Eye, Exophthalmos, Floaters, Irritation, Itchy Eyes, Loss of Peripheral Vision, Pain, Photophobia, Requires Corrective Lenses, Sees Flashes, Spots in Vision, Tunnel Vision, Other Visual Disturbances, Loss of Vision, Other Ears: absent: As Per HPI, Decreased Hearing, Ear Discharge, Ear Pain, Tinnitus, Abnormal Hearing, Disequilibrium, Dizziness, Other Nose/Mouth/Throat: absent: As Per HPI, Epistaxis, Nasal Congestion, Nasal Discharge, Nasal Obstruction, Nasal Trauma, Nose Pain, Post Nasal Drip, Sinus Pain, Sinus Pressure, Bleeding Gums, Change in Voice, Dental Pain, Dry Mouth, Dysphagia, Halitosis, Hoarsness, Lip Swelling, Mouth Lesions, Mouth Pain, Odynophagia, Sore Throat, Throat Swelling, Tongue Swelling, Facial Pain, Neck Pain, Neck Mass, Other - Breasts Breasts: absent: As Per HPI, Change in Shape, Mass, Pain, Nipple Discharge, Nipple Inversion, Skin Changes, Swelling, Other - Cardiovascular Cardiovascular: As Per HPI, Lightheadedness, Syncope. absent: Acrocyanosis, Chest Pain, Chest Pain at Rest, Chest Pain with Activity, Claudication, Diaphoresis, Dyspnea, Dyspnea on Exertion, Edema, Irregular Heart Rhythm, Pain Radiating to Arm/Neck/Jaw, Leg Edema, Leg Ulcers, Orthopnea, Palpitations, Paroxysmal Nocturnal Dyspnea, Pedal Edema, Radiating Pain, Rapid Heart Rate, Slow Heart Rate, Other - Respiratory Respiratory: absent: As Per HPI, Cough, Dyspnea, Hemoptysis, Dyspnea on Exertion , Wheezing, Snoring, Stridor, Pain on Inspiration, Chest Congestion, Excessive Mucous Production, Change in Mucous Color, Pain with Coughing, Other - Gastrointestinal Gastrointestinal: absent: As Per HPI, Abdominal Pain, Belching, Bloating, Change in Bowel Habits, Change in Stool Character, Coffee Ground Emesis, Constipation, Cramping, Diarrhea, Dyspepsia, Dysphagia, Early Satiety, Excessive Flatus, Fecal Incontinence, Heartburn, Hematemesis, Hematochezia, Loose Stools, Melena, Nausea, Odynophagia, Temesmus, Vomiting, Other - Genitourinary Genitourinary: absent: As Per HPI, Change in Urinary Stream, Difficulty Urinating, Dysuria, Flank Pain, Hematuria, Pyuria, Nocturia, Urinary Incontinence, Urinary Frequency, Urinary Hesitance, Urinary Urgency, Voiding Freq/Small Amts, Freq UTI, Hx Renal/Bladder Calculi, Hx /Renal Surgery, Bladder Distension, Other - Menstruation Menstruation: absent: As Per HPI, Amenorrhea, Amenorrhea/ Control, Currently Menstual, Cycle <21 Days, Cycle >35 Days, Cycle Variable, Menses 1-7 Days, Menses >/= 8 Days, Menses Variable, Cycle > 4 Weeks Between, No Menses for 6 Months, Heavy Menses, Light Menses, Normal Menses, Spotting Between Cycles , S/P Hysterectomy, Menopausal, Post Menopausal, Premenarche, Abnormal Vaginal Bleeding, Dysmenorrhea, Other - Musculoskeletal Musculoskeletal: absent: As Per HPI, Abnormal Gait, Arthralgias, Atrophy, Back Pain, Deformity, Joint Swelling, Limited Range of Motion, Loss of Height, Muscle Cramps, Muscle Weakness, Myalgias, Neck Pain, Numbness, Radiating Pain into Limb, Stiffness, Tingling, Other - Integumentary Integumentary: absent: As Per HPI, Acne, Alopecia, Bleeding Lesions, Change in Hair, Change in Nails, Change in Pigmentation, Changing Lesions, Dry Skin, Erythema, Furuncle, Hirsutism, Lesions, New Lesions, Non-Healing Lesions, Photosensitivity, Pruritus, Rash, Skin Pain, Skin Ulcer, Sores, Striae, Swelling , Unusual Bruising, Wounds, Jaundice, Other - Neurological Neurological: Dizziness, Syncope, Weakness. absent: As Per HPI, Abnormal Gait, Abnormal Hearing, Abnormal Movements, Abnormal Speech, Behavioral Changes, Burning Sensations, Confusion, Convulsions, Disequilibrium, Numbness, Focal Weakness, Frequent Falls, Headaches, Lack of Coordination, Loss of Vision, Memory Loss, Paresthesias, Radicular Pain, Restless Legs, Sensory Deficit, Tingling, Tremor, Vertigo, Other Visual Disturbances, Other - Psychiatric Psychiatric: absent: As Per HPI, Abnormal Sleep Pattern, Anhedonia, Anxiety, Auditory Hallucinations, Behavioral Changes, Change in Appetite, Change in Libido, Confusion, Depression, Difficulty Concentrating, Hallucinations, Homicidal Ideation, Hopelessness, Irritability, Memory Loss, Mood Swings, Panic Attacks, Paranoia, Suicidal Ideation, Visual Hallucinations, Tactile Hallucinations, Other - Endocrine Endocrine: absent: As Per HPI, Change in Body Appearance, Change in Libido, Cold Intolorance, Deepening of Voice, Excessive Sweating, Fatigue, Flushing, Heat Intolorance, Increase in Ring/Shoe/Hat Size, Palpitations, Polydipsia, Polyphagia, Polyuria, Other - Hematologic/Lymphatic Hematologic: absent: As Per HPI, Easy Bleeding, Easy Bruising, Lymphadenopathy, Other Past Patient History - Past Medical History & Family History Past Medical History?: Yes - Past Social History Smoking Status: Former Smoker Chewing Tobacco Use: No Cigar Use: No Alcohol: Occasional Home Situation {Lives}: With Family Domestic Violence: Negative - CARDIAC Hx Heart Murmur: Yes Hx Hypertension: Yes - NEUROLOGICAL Hx Migraine: Yes - RENAL Hx Chronic Kidney Disease: No - MUSCULOSKELETAL/RHEUMATOLOGICAL Hx Falls: No - PSYCHIATRIC Hx Substance Use: Yes - SURGICAL HISTORY Hx Cholecystectomy: Yes - ANESTHESIA Hx Anesthesia: Yes Hx Anesthesia Reactions: No Meds Allergies/Adverse Reactions: Allergies Allergy/AdvReac Type Severity Reaction Status Date / Time oyster extract Allergy hives Verified 06/13/16 19:25 Penicillins Allergy hives Verified 06/13/16 19:25 - Medications Medications: Current Medications Acetaminophen/Butalbital/Caffeine (Fioricet) 1 tab PO Q4 PRN PRN Reason: Headache Last Admin: 11/21/16 16:55 Dose: 1 tab Aspirin (Aspirin) 325 mg PO DAILY [facility] Last Admin: 11/21/16 10:57 Dose: 325 mg Enoxaparin Sodium (Lovenox) 60 mg SC Q12 [facility] PRN Reason: Protocol Last Admin: 11/21/16 17:33 Dose: 60 mg Methadone HCl (Methadone) 5 mg PO DAILY [facility] Last Admin: 11/21/16 09:13 Dose: 5 mg Methadone HCl (Methadone) 80 mg PO DAILY [facility] Last Admin: 11/21/16 08:53 Dose: 80 mg Metoprolol Tartrate (Lopressor) 12.5 mg PO Q12 [facility] Last Admin: 11/21/16 17:32 Dose: 12.5 mg Ondansetron HCl (Zofran Inj) 4 mg IV Q6 PRN PRN Reason: Nausea/Vomiting Physical Exam - Constitutional Appears: Non-toxic - Head Exam Head Exam: ATRAUMATIC, NORMAL INSPECTION, NORMOCEPHALIC - Eye Exam Eye Exam: EOMI, Normal appearance, PERRL. absent: Conjunctival injection, Nystagmus, Periorbital swelling, Periorbital tenderness, Scleral icterus Pupil Exam: NORMAL ACCOMODATION, PERRL. absent: Fixed, Irregular, Miosis, Mydriatic, Unequal - ENT Exam ENT Exam: Mucous Membranes Moist, Normal Exam. absent: Mucous Membranes Dry, Normal External Ear Exam, Normal Oropharynx, TM's Normal Bilaterally - Neck Exam Neck exam: Positive for: Normal Inspection. Negative for: Full Rom, Lymphadenopathy, Meningismus, Tenderness, Thyromegaly - Respiratory Exam Respiratory Exam: Clear to Auscultation Bilateral, NORMAL BREATHING PATTERN. absent: Accessory Muscle Use, Chest Wall Tenderness, Decreased Breath Sounds, Prolonged Expiratory Phase, Rales, Rhonchi, Wheezes, Respiratory Distress, Stridor - Cardiovascular Exam Cardiovascular Exam: REGULAR RHYTHM, +S1, +S2, Systolic Murmur. absent: Bradycardia, Tachycardia, Clicks, Diastolic murmur, Gallop, Irregular Rhythm, JVD, RRR, Rubs, +S4 - GI/Abdominal Exam GI & Abdominal Exam: Normal Bowel Sounds, Soft. absent: Bruit, Diminished Bowel Sounds, Distended, Firm, Guarding, Hernia, Hyperactive Bowel Sounds, Hypoactive Bowel Sounds, Mass, Organomegaly, Pulsatile Mass, Rebound, Rigid, Tenderness - Rectal Exam Rectal Exam: Deferred - Extremities Exam Extremities exam: Positive for: normal inspection. Negative for: calf tenderness, full ROM, joint swelling, normal capillary refill, pedal edema, tenderness, pedal pulses present - Back Exam Back exam: NORMAL INSPECTION. absent: CVA tenderness (L), CVA tenderness (R), FULL ROM, muscle spasm, paraspinal tenderness, rash noted, tenderness, vertebral tenderness - Neurological Exam Neurological exam: Alert, CN II-XII Intact, Normal Gait, Oriented x3, Reflexes Normal - Psychiatric Exam Psychiatric exam: Normal Affect, Normal Mood - Skin Skin Exam: Dry, Intact, Normal Color, Warm Results - Vital Signs Recent Vital Signs: Last Vital Signs Temp 98.9 F 11/21/16 16:00 Pulse 66 11/21/16 18:00 Resp 19 11/21/16 18:00 BP 109/72 11/21/16 18:00 Pulse Ox 96 11/21/16 18:00 - Labs Result Diagrams: 11/24/16 06:00 11/24/16 05:30 Labs: Laboratory Results - last 24 hr 11/21/16 11/21/16 11/21/16 04:50 04:50 12:15 WBC 7.2 RBC 3.87 Hgb 11.5 L Hct 34.3 MCV 88.8 MCH 29.6 MCHC 33.4 RDW 14.2 Plt Count 110 L D Sodium 142 Potassium 3.9 Chloride 115 H Carbon Dioxide 23 Anion Gap 8 L BUN 17 Creatinine 1.0 Est GFR ( Amer) > 60 Est GFR (Non-Af Amer) > 60 Random Glucose 87 Calcium 7.6 L Troponin I 1.0800 H* 1.0700 H* - EKG Data EKG Interpreted by: Myself Assessment & Plan (1) Syncope Status: Acute (2) Hypotension Status: Acute (3) Prolonged Q-T interval on ECG Status: Acute (4) PHT (pulmonary hypertension) Status: Acute (5) Elevated troponin I level Status: Acute (6) Erythrocytosis Status: Acute (7) Opioid dependence Status: Acute (8) Tricuspid regurgitation Status: Acute - Assessment and Plan (Free Text) Plan: given phtn would check le duplex and d dimer pt was hypotensive earlier, would check cta give mag for long qt labetalol and clonidine held cont current care check bnp, mag, cbc, cmp bc x 2 should be checked as pt is drug abuser with severe tr. 90 min total care time.
--- NOTE | 2016-11-21 19:40 | CP.PCM.HP ---
Past Patient History - Past Medical History & Family History Past Medical History?: Yes - Past Social History Smoking Status: Former Smoker - CARDIAC Hx Heart Murmur: Yes Hx Hypertension: Yes - NEUROLOGICAL Hx Migraine: Yes - RENAL Hx Chronic Kidney Disease: No - MUSCULOSKELETAL/RHEUMATOLOGICAL Hx Falls: No - PSYCHIATRIC Hx Substance Use: Yes - SURGICAL HISTORY Hx Cholecystectomy: Yes - ANESTHESIA Hx Anesthesia: Yes Hx Anesthesia Reactions: No Meds Allergies/Adverse Reactions: Allergies Allergy/AdvReac Type Severity Reaction Status Date / Time oyster extract Allergy hives Verified 06/13/16 19:25 Penicillins Allergy hives Verified 06/13/16 19:25 Results - Vital Signs Recent Vital Signs: Last Vital Signs Temp 98.9 F 11/21/16 16:00 Pulse 66 11/21/16 18:00 Resp 19 11/21/16 18:00 BP 109/72 11/21/16 18:00 Pulse Ox 96 11/21/16 18:00 - Labs Result Diagrams: 11/21/16 04:50 11/21/16 04:50 Labs: Laboratory Results - last 24 hr 11/21/16 11/21/16 11/21/16 04:50 04:50 12:15 WBC 7.2 RBC 3.87 Hgb 11.5 L Hct 34.3 MCV 88.8 MCH 29.6 MCHC 33.4 RDW 14.2 Plt Count 110 L D Sodium 142 Potassium 3.9 Chloride 115 H Carbon Dioxide 23 Anion Gap 8 L BUN 17 Creatinine 1.0 Est GFR ( Amer) > 60 Est GFR (Non-Af Amer) > 60 Random Glucose 87 Calcium 7.6 L Troponin I 1.0800 H* 1.0700 H*
--- NOTE | 2016-11-21 19:41 | CP.PCM.PN ---
Subjective - Date & Time of Evaluation Date of Evaluation: 11/21/16 Time of Evaluation: 19:30 - Subjective Subjective: Seen and examined at the bed side. Denies chest pain or sob. Objective - Vital Signs/Intake and Output Vital Signs (last 24 hours): Temp Pulse Resp BP Pulse Ox 98.9 F 66 19 109/72 96 11/21/16 16:00 11/21/16 18:00 11/21/16 18:00 11/21/16 18:00 11/21/16 18:00 Intake and Output: 11/21/16 11/22/16 18:59 06:59 Intake Total 1150 Output Total 1300 Balance -150 - Medications Medications: Current Medications Acetaminophen/Butalbital/Caffeine (Fioricet) 1 tab PO Q4 PRN PRN Reason: Headache Aspirin (Aspirin) 325 mg PO DAILY [facility] Enoxaparin Sodium (Lovenox) 60 mg SC Q12 TIERA PRN Reason: Protocol Methadone HCl (Methadone) 5 mg PO DAILY [facility] Methadone HCl (Methadone) 80 mg PO DAILY [facility] Metoprolol Tartrate (Lopressor) 12.5 mg PO Q12 TIERA Ondansetron HCl (Zofran Inj) 4 mg IV Q6 PRN PRN Reason: Nausea/Vomiting - Labs Labs: 11/21/16 04:50 11/21/16 04:50 - Constitutional Appears: Well, No Acute Distress - Head Exam Head Exam: ATRAUMATIC, NORMAL INSPECTION, NORMOCEPHALIC - Eye Exam Eye Exam: EOMI, Normal appearance, PERRL Pupil Exam: NORMAL ACCOMODATION, PERRL - ENT Exam ENT Exam: Mucous Membranes Moist, Normal Exam - Neck Exam Neck Exam: Full ROM, Normal Inspection. absent: Lymphadenopathy - Respiratory Exam Respiratory Exam: Clear to Ausculation Bilateral, NORMAL BREATHING PATTERN - Cardiovascular Exam Cardiovascular Exam: REGULAR RHYTHM, +S1, +S2. absent: Murmur - GI/Abdominal Exam GI & Abdominal Exam: Soft, Normal Bowel Sounds. absent: Tenderness - Extremities Exam Extremities Exam: Full ROM, Normal Capillary Refill, Normal Inspection. absent : Joint Swelling, Pedal Edema - Back Exam Back Exam: NORMAL INSPECTION - Neurological Exam Neurological Exam: Alert, Awake, CN II-XII Intact, Normal Gait, Oriented x3 - Psychiatric Exam Psychiatric exam: Normal Affect, Normal Mood - Skin Skin Exam: Dry, Intact, Normal Color, Warm Assessment and Plan (1) NSTEMI (non-ST elevated myocardial infarction) Assessment & Plan: Hypotension- Resolved NSTEMI in the setting of Hypotension R/O Underlying CAD PE Ruled out Continue ASA.BB Troponin Trended down 2D Echo Chorus Master on Board Status: Acute
[2016-11-21] MEDS ORDERED: Iodixanol 320 MG/ML 100 ML BOTTLE IV ONE (20:26)
[2016-11-21] MEDS ORDERED: Sodium Chloride 0.9% 50 ML IV ONE (20:27)
[2016-11-21] MEDS: Apap-Butalbital-Caffeine 325-50-40mg Tab PO PRN (22:55)
[2016-11-21] MEDS: Enoxaparin 60 mg Syringe SC SCH (22:56)
--- NOTE | 2016-11-21 23:09 | CT ---
EXAM: CT Angiography Chest With Intravenous Contrast CLINICAL HISTORY: 45 years old, female; Signs and symptoms; Shortness of breath and other: + cardiac enzymes; Additional info: Pe TECHNIQUE: Axial computed tomographic angiography images of the chest with intravenous contrast using pulmonary embolism protocol. All CT scans at this facility use one or more dose reduction techniques, viz.: automated exposure control; ma/kV adjustment per patient size (including targeted exams where dose is matched to indication; i.e. head); or iterative reconstruction technique. MIP reconstructed images were created and reviewed. Coronal and sagittal reformatted images were created and reviewed. CONTRAST: 80 mL of [id number] 80ML administered intravenously. COMPARISON: No relevant prior studies available. FINDINGS: Pulmonary arteries: No pulmonary embolism. Aorta: No thoracic aortic aneurysm. Lungs: No mass. No consolidation.Small bilateral pleural effusions, with adjacent compressive atelectasis. Pleural spaces: As above. Heart: No cardiomegaly. No significant pericardial effusion. No evidence of right heart dysfunction. Bones: No acute fracture. Lymph nodes: No pathologically enlarged lymph nodes. IMPRESSION: No pulmonary embolism. Small bilateral pleural effusions, with adjacent compressive atelectasis. An
[2016-11-22 05:28] LABS: BASO % 0.2 % (0.0-2.0); EOS # 0.1 K/uL (0.0-0.7); EOS % 1.4 % (0.0-4.0); HEMOGLOBIN 11.7 g/dL (12.0-16.0); LYMPH # 2.3 K/uL (1.0-4.3); LYMPH % 51.3 % (20.0-40.0); MEAN CELL VOLUME 88.2 fl (81.0-99.0); MEAN CORPUSCULAR HEMOGLOBIN 29.4 pg (27.0-31.0); MEAN CORPUSCULAR HGB CONC 33.4 g/dL (33.0-37.0); MEAN PLATELET VOLUME 9.8 fl (7.2-11.7); MONO # 0.3 K/uL (0.0-0.8); MONO % 7.5 % (0.0-10.0); NEUT # 1.7 K/uL (1.8-7.0); NEUT % 39.6 % (50.0-75.0); RBC 3.96 Mil/uL (3.80-5.20); RED CELL DISTRIBUTION WIDTH 13.9 % (11.5-14.5); WHITE BLOOD COUNT 4.4 K/uL (4.8-10.8)
[2016-11-22 05:36] LABS: ALB/GLOB RATIO 1.2 (1.0-2.1); ALBUMIN 3.2 g/dL (3.5-5.0); ALT/SGPT 42 U/L (9-52); AST/SGOT 39 U/L (14-36); BLOOD UREA NITROGEN 8 mg/dl (7-17); CALCIUM 8.9 mg/dL (8.4-10.2); GFR AFRICAN-AMERICAN > 60; GFR NON-AFRICAN AMERICAN > 60
[2016-11-22 05:41] LABS: B-TYPE NATRIURETIC PEPTIDE 3840 pg/ml (0-450)
--- NOTE | 2016-11-22 07:22 | CARD ---
APPROVED REPORT EKG Measurement Heart [id number] <Conclusion> Normal sinus rhythm Possible Left atrial enlargement Nonspecific T wave abnormality Abnormal ECG
--- NOTE | 2016-11-22 07:44 | CP.CCUPN ---
Addendum entered and electronically signed by Paulino Montano MD 11/22/16 11:26: DVT Prophylaxis -Changed to Lovenox 40 mg SC QDAY considering patient has not PE, DVT and eradicator did not consider NSTEMI Original Note: <Paulino Montano - Last Filed: 11/22/16 10:38> CCU Subjective - Physician Review Subjective (Free Text): 11/22/16 07:4 Patient seen and examined bedside. Reports Migraine Headache yesterday night subsided with meds and mild abdominal cramps. No overnight events. Denies chest pain, SOB, palpitation, leg swelling, N/V/D, chills. Voiding frequent. No BM yesterday CCU Objective - Vital Signs / Intake & Output Vital Signs (Last 4 hours): Vital Signs Temp Pulse Resp BP Pulse Ox 11/22/16 07:41 98.8 F 66 19 98 11/22/16 06:00 72 12 166/110 H 99 11/22/16 04:00 99.2 F 63 17 122/76 99 Intake and Output (Last 8hrs): Intake & Output 11/21/16 11/22/16 11/22/16 22:59 06:59 14:59 Intake Total 330 170 0 Output Total 500 Balance -170 170 0 Intake: IV 30 0 Oral 300 170 0 Output: Urine 500 Urine, Voided 500 Other: # Voids Urine, Voided 1 1 0 - Physical Exam Head: Positive for: Atraumatic, Normocephalic Pupils: Positive for: PERRL Conjunctiva: Positive for: Normal Mouth: Positive for: Moist Mucous Membranes Neck: Positive for: Normal Range of Motion Respiratory/Chest: Positive for: Clear to Auscultation, Good Air Exchange. Negative for: Wheezes, Rales, Rhonchi Cardiovascular: Positive for: Regular Rate and Rhythm, Murmurs (systolic murmur 2/6 aortic,pulmonar,tricuspid area,not radiated.), Normal S1, S2 Abdomen: Positive for: Normal Bowel Sounds. Negative for: Tenderness, Distention Upper Extremity: Positive for: Normal Inspection Lower Extremity: Positive for: Normal Inspection. Negative for: Edema, CALF TENDERNESS Neurological: Positive for: Speech Normal, Motor Func Grossly Intact Skin: Positive for: Warm, Normal Color Psychiatric: Positive for: Alert, Oriented x 3 - Medications Active Medications: Active Medications Generic Name Dose Route Start Last Admin Trade Name Freq PRN Reason Stop Dose Admin Acetaminophen/Butalbital/Caffeine 1 tab 11/21/16 19:25 11/21/16 22:55 Fioricet PO 1 tab Q4 PRN Administration Headache Aspirin 325 mg 11/22/16 09:00 Aspirin PO DAILY [facility] Enoxaparin Sodium 60 mg 11/21/16 21:00 11/21/16 22:56 Lovenox SC 60 mg Q12 TIERA Administration Protocol Methadone HCl 5 mg 11/22/16 09:00 Methadone PO DAILY [facility] Methadone HCl 80 mg 11/22/16 09:00 Methadone PO DAILY [facility] Metoprolol Tartrate 12.5 mg 11/21/16 21:00 11/21/16 22:54 Lopressor PO 12.5 mg Q12 TIERA Administration Ondansetron HCl 4 mg 11/21/16 19:25 Zofran Inj IV Q6 PRN Nausea/Vomiting - Patient Studies Lab Studies: Microbiology Studies 11/20/16 17:49 MRSA Culture (Admit) - Final Naris MRSA NOT DETECTED 11/20/16 17:49 Urine Culture - Final Urine,Catheterized No Growth (<1,000 CFU/ML) Lab Studies 11/22/16 11/22/16 11/22/16 Range/Units 04:25 04:25 04:25 WBC 4.4 L (4.8-10.8) K/uL RBC 3.96 (3.80-5.20) Mil/uL Hgb 11.7 L (12.0-16.0) g/dL Hct 35.0 (34.0-47.0) % MCV 88.2 (81.0-99.0) fl MCH 29.4 (27.0-31.0) pg MCHC 33.4 (33.0-37.0) g/dL RDW 13.9 (11.5-14.5) % Plt Count 101 L (130-400) K/uL MPV 9.8 (7.2-11.7) fl Neut % (Auto) 39.6 L (50.0-75.0) % Lymph % (Auto) 51.3 H (20.0-40.0) % Crook % (Auto) 7.5 (0.0-10.0) % Eos % (Auto) 1.4 (0.0-4.0) % Baso % (Auto) 0.2 (0.0-2.0) % Neut # 1.7 L (1.8-7.0) K/uL Lymph # 2.3 (1.0-4.3) K/uL Crook # 0.3 (0.0-0.8) K/uL Eos # 0.1 (0.0-0.7) K/uL Baso # 0.0 (0.0-0.2) K/uL D-Dimer, Quantitative (0-230) ng/mlDDU Sodium 141 (132-148) mmol/l Potassium 3.8 (3.6-5.0) MMOL/L Chloride 106 (98-107) mmol/L Carbon Dioxide 30 (22-30) mmol/L Anion Gap 8 L (10-20) BUN 8 (7-17) mg/dl Creatinine 0.8 (0.7-1.2) mg/dL Est GFR ( Amer) > 60 Est GFR (Non-Af Amer) > 60 Random Glucose 89 (65-105) mg/dL Calcium 8.9 (8.4-10.2) mg/dL Total Bilirubin 0.5 (0.2-1.3) mg/dl AST 39 H (14-36) U/L ALT 42 (9-52) U/L Alkaline Phosphatase 63 (38-126) U/L Troponin I 0.7830 H* (0.00-0.120) ng/mL NT-Pro-B Natriuret Pep 3840 H (0-450) pg/ml Total Protein 5.8 L (6.3-8.2) G/DL Albumin 3.2 L D (3.5-5.0) g/dL Globulin 2.6 (2.2-3.9) gm/dL Albumin/Globulin Ratio 1.2 (1.0-2.1) Urine HCG, Qual (NEGATIVE) HIV-1 Ab Rapid Screen Non reactive (NON REAC) 11/21/16 11/21/16 11/21/16 Range/Units 20:00 20:00 12:15 WBC (4.8-10.8) K/uL RBC (3.80-5.20) Mil/uL Hgb (12.0-16.0) g/dL Hct (34.0-47.0) % MCV (81.0-99.0) fl MCH (27.0-31.0) pg MCHC (33.0-37.0) g/dL RDW (11.5-14.5) % Plt Count (130-400) K/uL MPV (7.2-11.7) fl Neut % (Auto) (50.0-75.0) % Lymph % (Auto) (20.0-40.0) % Crook % (Auto) (0.0-10.0) % Eos % (Auto) (0.0-4.0) % Baso % (Auto) (0.0-2.0) % Neut # (1.8-7.0) K/uL Lymph # (1.0-4.3) K/uL Crook # (0.0-0.8) K/uL Eos # (0.0-0.7) K/uL Baso # (0.0-0.2) K/uL D-Dimer, Quantitative 809 H (0-230) ng/mlDDU Sodium (132-148) mmol/l Potassium (3.6-5.0) MMOL/L Chloride (98-107) mmol/L Carbon Dioxide (22-30) mmol/L Anion Gap (10-20) BUN (7-17) mg/dl Creatinine (0.7-1.2) mg/dL Est GFR ( Amer) Est GFR (Non-Af Amer) Random Glucose (65-105) mg/dL Calcium (8.4-10.2) mg/dL Total Bilirubin (0.2-1.3) mg/dl AST (14-36) U/L ALT (9-52) U/L Alkaline Phosphatase (38-126) U/L Troponin I 1.0700 H* (0.00-0.120) ng/mL NT-Pro-B Natriuret Pep (0-450) pg/ml Total Protein (6.3-8.2) G/DL Albumin (3.5-5.0) g/dL Globulin (2.2-3.9) gm/dL Albumin/Globulin Ratio (1.0-2.1) Urine HCG, Qual Negative (NEGATIVE) HIV-1 Ab Rapid Screen (NON REAC) Laboratory Results - last 24 hr 11/21/16 11/21/16 11/21/16 12:15 20:00 20:00 WBC RBC Hgb Hct MCV MCH MCHC RDW Plt Count MPV Neut % (Auto) Lymph % (Auto) Crook % (Auto) Eos % (Auto) Baso % (Auto) Neut # Lymph # Crook # Eos # Baso # D-Dimer, Quantitative 809 H Sodium Potassium Chloride Carbon Dioxide Anion Gap BUN Creatinine Est GFR ( Amer) Est GFR (Non-Af Amer) Random Glucose Calcium Total Bilirubin AST ALT Alkaline Phosphatase Troponin I 1.0700 H* NT-Pro-B Natriuret Pep Total Protein Albumin Globulin Albumin/Globulin Ratio Urine HCG, Qual Negative HIV-1 Ab Rapid Screen 11/22/16 11/22/16 11/22/16 04:25 04:25 04:25 WBC 4.4 L RBC 3.96 Hgb 11.7 L Hct 35.0 MCV 88.2 MCH 29.4 MCHC 33.4 RDW 13.9 Plt Count 101 L MPV 9.8 Neut % (Auto) 39.6 L Lymph % (Auto) 51.3 H Crook % (Auto) 7.5 Eos % (Auto) 1.4 Baso % (Auto) 0.2 Neut # 1.7 L Lymph # 2.3 Crook # 0.3 Eos # 0.1 Baso # 0.0 D-Dimer, Quantitative Sodium 141 Potassium 3.8 Chloride 106 Carbon Dioxide 30 Anion Gap 8 L BUN 8 Creatinine 0.8 Est GFR ( Amer) > 60 Est GFR (Non-Af Amer) > 60 Random Glucose 89 Calcium 8.9 Total Bilirubin 0.5 AST 39 H ALT 42 Alkaline Phosphatase 63 Troponin I 0.7830 H* NT-Pro-B Natriuret Pep 3840 H Total Protein 5.8 L Albumin 3.2 L D Globulin 2.6 Albumin/Globulin Ratio 1.2 Urine HCG, Qual HIV-1 Ab Rapid Screen Non reactive Review of Systems - Cardiovascular Cardiovascular: absent: Chest Pain, Dyspnea - Respiratory Respiratory: absent: Cough, Dyspnea - Neurological Neurological: Headaches Assessment/Plan - Assessment and Plan (Free Text) Plan: 45 yo, f, Pmhx/o methadone dependency, opioid abuse and migraine headache , currently enrolled in a methadone program at [facility], who presented to [facility] with sudden vomiting, diarrhea, dehydration, Hypertensive urgency. patient transferred to ICU secondary to hypotension by antihypertensive meds. Assessment/Plan 1) Drug Induced Hypotension -secondary to antihypertensive medications hydralazine, clonidine,Labetalol -controlled -s/p IV fluids 4 liters on ICU admission -s/p stopped BP meds -BP 143/57 today 2) NSTEMI -secondary to sustained hypotension -EKG showed ST depression V4,V5,V6 normalized after IF fluids -troponin serial high 1.08 trending down 0.7 -D Dimer high secondary to OK. PE ruled out.chest CT and US leg NL. -ASA 325 mg PO daily -Metoprolol 12.5 mg PO Q 12h -Lisinopril 5 mg Po daily -Lasix 20 mg PO daily -Lovenox therapeutic 60 mg Q12h -F/U lipid profile -Echo:LV nl size, thikness and wall motion. EF 65-70%. RA mod dilated, mod to sev TR.mild Pulmonary HTN. -Cardiology consult appreciated 3) CHF diastolic with preserved EF (HFpEF) -secondary to NSTEMI -ProBNP 3840 -Echo:EF 65-70%. RA mod dilated, mod to sev TR.mild Pulmonary HTN. -Lisinopril 5 mg PO daily -Lasix 20 mg PO daily -Metoprolold Tartrate 12.5 mg BID -f/u patient's weight, cbc, CMP, MG 4) Long QT prolongation -secondary to methadone use -MG 1.6 nl low -MG oxide 400 mg qday x 3 days -F/U Mg 5) Opiods withdrawal -On methadone program at 86 mg dose. skipped dose x 2 days -withdrawal symptoms on admission -COW score 3 -consider clonidine for HTN 2to withdrawal -f/u Hep B, Hep C 6) Migraine Headache -Hx/o migraine and controlled with Fioricet -Fioricet 1 tab q4h PRN not to exceed 6 tab day 7)Thrombocytopenia -possible secondary to meds,infection -platelets 101 -HIV neg -f/u CBC 8) DVT Prophylaxis -Lovenox 60 mg Q 12h <Antonio Thomas - Last Filed: 11/24/16 21:19> CCU Objective - Vital Signs / Intake & Output Intake and Output (Last 8hrs): Intake & Output 08/13/17 08/13/17 08/13/17 06:59 14:59 22:59 Intake Total 0 Output Total 250 Balance -250 Weight 149 lb Intake: IV 0 Output: Urine 250 Urine, Voided 250 Other: # Voids Urine, Voided 1 1 - Medications Active Medications: Active Medications Generic Name Dose Route Start Last Admin Trade Name Freq PRN Reason Stop Dose Admin Acetaminophen/Butalbital/Caffeine 1 tab 11/21/16 19:25 11/24/16 16:28 Fioricet PO 1 tab Q4 PRN Administration Headache Aspirin 325 mg 11/22/16 09:00 11/24/16 08:54 Aspirin PO 325 mg DAILY TIERA Administration Atorvastatin Calcium 20 mg 11/22/16 18:00 11/24/16 08:49 Lipitor PO 20 mg DAILY TIERA Administration Diphenhydramine HCl 50 mg 11/25/16 09:00 Benadryl PO ONCE [facility]ERA Famotidine 40 mg 11/25/16 09:00 Pepcid PO 11/25/16 09:01 ONCE ONE Lisinopril 10 mg 11/24/16 09:00 11/24/16 08:48 Zestril PO 10 mg DAILY TIERA Administration Methadone HCl 5 mg 11/22/16 09:00 11/24/16 09:08 Methadone PO 5 mg DAILY [facility] Administration Methadone HCl 80 mg 11/22/16 09:00 11/24/16 09:07 Methadone PO 80 mg DAILY [facility] Administration Ondansetron HCl 4 mg 11/21/16 19:25 Zofran Inj IV Q6 PRN Nausea/Vomiting - Patient Studies Lab Studies: Lab Studies 11/24/16 11/24/16 11/24/16 Range/Units 06:00 06:00 05:30 WBC 4.1 L (4.8-10.8) K/uL RBC 4.28 (3.80-5.20) Mil/uL Hgb 12.9 (12.0-16.0) g/dL Hct 37.5 (34.0-47.0) % MCV 87.5 (81.0-99.0) fl MCH 30.0 (27.0-31.0) pg MCHC 34.3 (33.0-37.0) g/dL RDW 13.0 (11.5-14.5) % Plt Count 136 (130-400) K/uL MPV 9.9 (7.2-11.7) fl Neut % (Auto) 41.1 L (50.0-75.0) % Lymph % (Auto) 47.9 H (20.0-40.0) % Crook % (Auto) 8.2 (0.0-10.0) % Eos % (Auto) 2.5 (0.0-4.0) % Baso % (Auto) 0.3 (0.0-2.0) % Neut # 1.7 L (1.8-7.0) K/uL Lymph # 2.0 (1.0-4.3) K/uL Crook # 0.3 (0.0-0.8) K/uL Eos # 0.1 (0.0-0.7) K/uL Baso # 0.0 (0.0-0.2) K/uL ESR 25 H (0-20) mm/hr Sodium 142 (132-148) mmol/l Potassium 4.4 (3.6-5.0) MMOL/L Chloride 100 (98-107) mmol/L Carbon Dioxide 35 H (22-30) mmol/L Anion Gap 11 (10-20) BUN 17 (7-17) mg/dl Creatinine 0.9 (0.7-1.2) mg/dL Est GFR ( Amer) > 60 Est GFR (Non-Af Amer) > 60 Random Glucose 100 (65-105) mg/dL Calcium 9.4 (8.4-10.2) mg/dL Magnesium 2.2 (1.6-2.3) MG/DL Total Bilirubin 0.4 (0.2-1.3) mg/dl AST 48 H D (14-36) U/L ALT 61 H D (9-52) U/L Alkaline Phosphatase 71 (38-126) U/L Troponin I (0.00-0.120) ng/mL Total Protein 6.6 (6.3-8.2) G/DL Albumin 3.8 (3.5-5.0) g/dL Globulin 2.8 (2.2-3.9) gm/dL Albumin/Globulin Ratio 1.3 (1.0-2.1) Free T4 1.14 (0.78-2.19) ng/dL Total T3 1.00 L (1.49-2.60) nmol/L TSH 3rd Generation 2.74 (0.46-4.68) mIU/ML 11/23/16 Range/Units 20:45 WBC (4.8-10.8) K/uL RBC (3.80-5.20) Mil/uL Hgb (12.0-16.0) g/dL Hct (34.0-47.0) % MCV (81.0-99.0) fl MCH (27.0-31.0) pg MCHC (33.0-37.0) g/dL RDW (11.5-14.5) % Plt Count (130-400) K/uL MPV (7.2-11.7) fl Neut % (Auto) (50.0-75.0) % Lymph % (Auto) (20.0-40.0) % Crook % (Auto) (0.0-10.0) % Eos % (Auto) (0.0-4.0) % Baso % (Auto) (0.0-2.0) % Neut # (1.8-7.0) K/uL Lymph # (1.0-4.3) K/uL Crook # (0.0-0.8) K/uL Eos # (0.0-0.7) K/uL Baso # (0.0-0.2) K/uL ESR (0-20) mm/hr Sodium (132-148) mmol/l Potassium (3.6-5.0) MMOL/L Chloride (98-107) mmol/L Carbon Dioxide (22-30) mmol/L Anion Gap (10-20) BUN (7-17) mg/dl Creatinine (0.7-1.2) mg/dL Est GFR ( Amer) Est GFR (Non-Af Amer) Random Glucose (65-105) mg/dL Calcium (8.4-10.2) mg/dL Magnesium (1.6-2.3) MG/DL Total Bilirubin (0.2-1.3) mg/dl AST (14-36) U/L ALT (9-52) U/L Alkaline Phosphatase (38-126) U/L Troponin I 0.4330 H* (0.00-0.120) ng/mL Total Protein (6.3-8.2) G/DL Albumin (3.5-5.0) g/dL Globulin (2.2-3.9) gm/dL Albumin/Globulin Ratio (1.0-2.1) Free T4 (0.78-2.19) ng/dL Total T3 (1.49-2.60) nmol/L TSH 3rd Generation (0.46-4.68) mIU/ML Laboratory Results - last 24 hr 11/23/16 11/24/16 11/24/16 20:45 05:30 06:00 WBC 4.1 L RBC 4.28 Hgb 12.9 Hct 37.5 MCV 87.5 MCH 30.0 MCHC 34.3 RDW 13.0 Plt Count 136 MPV 9.9 Neut % (Auto) 41.1 L Lymph % (Auto) 47.9 H Crook % (Auto) 8.2 Eos % (Auto) 2.5 Baso % (Auto) 0.3 Neut # 1.7 L Lymph # 2.0 Crook # 0.3 Eos # 0.1 Baso # 0.0 ESR 25 H Sodium 142 Potassium 4.4 Chloride 100 Carbon Dioxide 35 H Anion Gap 11 BUN 17 Creatinine 0.9 Est GFR ( Amer) > 60 Est GFR (Non-Af Amer) > 60 Random Glucose 100 Calcium 9.4 Magnesium 2.2 Total Bilirubin 0.4 AST 48 H D ALT 61 H D Alkaline Phosphatase 71 Troponin I 0.4330 H* Total Protein 6.6 Albumin 3.8 Globulin 2.8 Albumin/Globulin Ratio 1.3 Free T4 Total T3 1.00 L TSH 3rd Generation 2.74 11/24/16 06:00 WBC RBC Hgb Hct MCV MCH MCHC RDW Plt Count MPV Neut % (Auto) Lymph % (Auto) Crook % (Auto) Eos % (Auto) Baso % (Auto) Neut # Lymph # Crook # Eos # Baso # ESR Sodium Potassium Chloride Carbon Dioxide Anion Gap BUN Creatinine Est GFR ( Amer) Est GFR (Non-Af Amer) Random Glucose Calcium Magnesium Total Bilirubin AST ALT Alkaline Phosphatase Troponin I Total Protein Albumin Globulin Albumin/Globulin Ratio Free T4 1.14 Total T3 TSH 3rd Generation EKG/Cardiology Studies: Cardiology / EKG Studies 11/24/16 09:00 EKG [ELECTROCARDIOGRAM] DAILY Comment: Mode Of Transportation: PORTABLE Reason For Exam: qt long Critical Care Progress Note - Nutrition Nutrition: Nutrition Category Date Time Status Cardiac [Heart Healthy Diet] [DIET] Diets 11/22/16 Lunch Active Assessment/Plan - Assessment and Plan (Free Text) Assessment: Attestation: Patient seen and examined at the bedside with Resident Dr. Julio Montano, and I agree with his outline of plans and management as documented and discussed on AM rounds reflecting my review of all applicable clinical data, and participation in the care of the patient throughout the day in ICU; today, November 22, 2016.
[2016-11-22 08:27] LABS: MAGNESIUM 1.6 MG/DL (1.6-2.3)
[2016-11-22] MEDS: Enoxaparin 60 mg Syringe SC SCH (09:00)
[2016-11-22] MEDS: Magnesium Oxide 400 mg Tab UD PO SCH (10:49)
--- NOTE | 2016-11-22 10:58 | US ---
PROCEDURE: Bilateral lower extremity venous duplex Doppler. HISTORY: ro dvt COMPARISON: None available. TECHNIQUE: Bilateral common femoral, superficial femoral, popliteal and posterior tibial veins were evaluated. Flow was assessed with color Doppler, compressibility, assessment of phasic flow and augmentation response. FINDINGS: COMMON FEMORAL VEIN: Right CFV: Unremarkable. Left CFV: Unremarkable. SUPERFICIAL FEMORAL VEIN: Right SFV: Unremarkable. Left SFV: Unremarkable. POPLITEAL VEIN: Right Popliteal: Unremarkable. Left Popliteal: Unremarkable. POSTERIOR TIBIAL VEIN: Right PTV: Unremarkable. Left PTV: Unremarkable. OTHER FINDINGS: None. IMPRESSION: No evidence of deep venous thrombosis.
[2016-11-22 12:01] LABS: HEPATITIS B SURFACE AG NEGATIVE (NEGATIVE)
--- NOTE | 2016-11-22 12:11 | CP.PCM.PN ---
Subjective - Date & Time of Evaluation Date of Evaluation: 11/22/16 Time of Evaluation: 13:00 - Subjective Subjective: PT DENIES CP OR SOB. NO ARRYTHMIAS ON MONITOR Objective - Vital Signs/Intake and Output Vital Signs (last 24 hours): Temp Pulse Resp BP Pulse Ox 98.8 F 60 17 142/75 96 11/22/16 07:41 11/22/16 10:50 11/22/16 10:00 11/22/16 10:50 11/22/16 10:00 Intake and Output: 11/22/16 11/22/16 06:59 18:59 Intake Total 250 200 Output Total 200 Balance 50 200 - Medications Medications: Current Medications Acetaminophen/Butalbital/Caffeine (Fioricet) 1 tab PO Q4 PRN PRN Reason: Headache Last Admin: 11/21/16 22:55 Dose: 1 tab Aspirin (Aspirin) 325 mg PO DAILY [facility] Last Admin: 11/22/16 09:10 Dose: 325 mg Atorvastatin Calcium (Lipitor) 20 mg PO DAILY [facility] Enoxaparin Sodium (Lovenox) 40 mg SC DAILY [facility] PRN Reason: Protocol Furosemide (Lasix) 20 mg PO DAILY [facility] Last Admin: 11/22/16 10:48 Dose: 20 mg Lisinopril (Zestril) 5 mg PO DAILY [facility] Last Admin: 11/22/16 10:50 Dose: 5 mg Magnesium Oxide (Mag-Ox) 400 mg PO DAILY [facility] Stop: 11/24/16 09:00 Last Admin: 11/22/16 10:49 Dose: 400 mg Methadone HCl (Methadone) 5 mg PO DAILY [facility] Last Admin: 11/22/16 09:13 Dose: 5 mg Methadone HCl (Methadone) 80 mg PO DAILY [facility] Last Admin: 11/22/16 08:55 Dose: 80 mg Metoprolol Tartrate (Lopressor) 12.5 mg PO Q12 [facility] Last Admin: 11/22/16 08:59 Dose: 12.5 mg Ondansetron HCl (Zofran Inj) 4 mg IV Q6 PRN PRN Reason: Nausea/Vomiting - Labs Labs: 11/22/16 04:25 11/22/16 04:25 - Constitutional Appears: Well - Head Exam Head Exam: ATRAUMATIC, NORMAL INSPECTION, NORMOCEPHALIC - Eye Exam Eye Exam: EOMI, Normal appearance, PERRL. absent: Conjunctival injection, Nystagmus, Periorbital swelling, Periorbital tenderness, Scleral icterus Pupil Exam: NORMAL ACCOMODATION, PERRL - ENT Exam ENT Exam: Mucous Membranes Moist, Normal Exam. absent: Mucous Membranes Dry, Normal External Ear Exam, Normal Oropharynx, TM's Normal Bilaterally - Neck Exam Neck Exam: Full ROM, Normal Inspection - Respiratory Exam Respiratory Exam: Clear to Ausculation Bilateral, NORMAL BREATHING PATTERN. absent: Accessory Muscle Use, Chest Wall Tenderness, Decreased Breath Sounds, Prolonged Expiratory Phase, Rales, Rhonchi, Wheezes, Respiratory Distress, Stridor - Cardiovascular Exam Cardiovascular Exam: REGULAR RHYTHM, +S1, +S2, Murmur. absent: Bradycardia, Tachycardia, Clicks, Diastolic murmur, Gallop, Irregular Rhythm, JVD, RRR, Rubs , +S4 - GI/Abdominal Exam GI & Abdominal Exam: Soft, Normal Bowel Sounds - Rectal Exam Rectal Exam: Deferred - Extremities Exam Extremities Exam: Full ROM, Normal Capillary Refill, Normal Inspection - Back Exam Back Exam: NORMAL INSPECTION. absent: CVA tenderness (L), CVA tenderness (R), Full ROM, muscle spasm, paraspinal tenderness, rash noted, tenderness, vertebral tenderness - Neurological Exam Neurological Exam: Alert, Awake, CN II-XII Intact, Normal Gait, Oriented x3. absent: Abnormal Gait, Altered, Motor Sensory Deficit, Reflexes Normal - Psychiatric Exam Psychiatric exam: Normal Affect, Normal Mood. absent: Agitated, Anxious, Depressed, Flat Affect, Homicidal Ideation, Manic, Suicidal Ideation - Skin Skin Exam: Dry, Intact, Normal Color, Warm. absent: Abrasion, Cyanosis, Diaphoretic, Erythema, Mottled, Pallor, Pallor, Petechiae, Rash, Urticaria, Vesicles Assessment and Plan (1) PHT (pulmonary hypertension) Status: Acute (2) Tricuspid regurgitation Status: Acute (3) Hypotension Status: Acute (4) Erythrocytosis Status: Acute (5) Opioid dependence Status: Acute (6) Prolonged Q-T interval on ECG Status: Acute (7) Elevated troponin I level Status: Acute - Assessment and Plan (Free Text) Plan: ETIOLOGY FOR TROP ABN IS UNKNOWN. PT HAS PHTN ON ECHO WITH SIG TR BC ARE NEGATIVE, NO CLINICAL SIGNS OF ENDOCARDITIS WILL MONITOR TROP AND LYTES. MONITOR QT PERIOD ON EKG 90 MIN TOTAL CARE TIME.
--- NOTE | 2016-11-22 12:13 | PQF GENQUE ---
Dr. Thomas, Acuity of CHF? Acute or Chronic? OR: Unable to determine 11/22: Critical Care progress note: CHF diastolic with preserved EF (HFpEF) - secondary to NSTEMI -ProBNP 3840 -Echo:EF 65-70%. RA mod dilated, mod to sev TR.mild Pulmonary HTN. -Lisinopril 5 mg PO daily -Lasix 20 mg PO daily -Metoprolold Tartrate 12.5 mg BID -f/u patient's weight , cbc This form is a permanent part of the medical record Clarification of your documentation is requested to better reflect the severity of illness and intensity of treatment of your patient. Indicators present [] Specify: [] [] Specify: [] [] Specify: [] [] Specify: [] Location in the medical record that reflects the above clinical findings: [] Treatment Provided: [] PHYSICIAN'S RESPONSE Based on your medical judgment of the clinical indicators outlined above please clarify the following: [] Practitioner response [] If unable to determine, please check the box, sign and date. Present On Admission (POA) Indicator: [] Present at the time of admission [] Not present at the time of admission [] Clinically Undetermined In responding to this query, please exercise your independent professional judgment. The fact that a question is asked does not imply that any particular answer is desired or expected. Thank you for your clarification on this documentation. If you have any questions please call. * Thank you, Shireen Cruz RN BSN ext. #[phone] MTDD
--- NOTE | 2016-11-22 12:13 | CP.PCM.PN ---
Subjective - Date & Time of Evaluation Date of Evaluation: 11/22/16 Time of Evaluation: 12:00 - Subjective Subjective: Seen and examined at the bed side. Feeling better. PE ruled out Objective - Vital Signs/Intake and Output Vital Signs (last 24 hours): Temp Pulse Resp BP Pulse Ox 98.8 F 60 17 142/75 96 11/22/16 07:41 11/22/16 10:50 11/22/16 10:00 11/22/16 10:50 11/22/16 10:00 Intake and Output: 11/22/16 11/22/16 06:59 18:59 Intake Total 250 200 Output Total 200 Balance 50 200 - Medications Medications: Current Medications Acetaminophen/Butalbital/Caffeine (Fioricet) 1 tab PO Q4 PRN PRN Reason: Headache Last Admin: 11/21/16 22:55 Dose: 1 tab Aspirin (Aspirin) 325 mg PO DAILY [facility] Last Admin: 11/22/16 09:10 Dose: 325 mg Atorvastatin Calcium (Lipitor) 20 mg PO DAILY [facility] Enoxaparin Sodium (Lovenox) 40 mg SC DAILY [facility] PRN Reason: Protocol Furosemide (Lasix) 20 mg PO DAILY [facility] Last Admin: 11/22/16 10:48 Dose: 20 mg Lisinopril (Zestril) 5 mg PO DAILY [facility] Last Admin: 11/22/16 10:50 Dose: 5 mg Magnesium Oxide (Mag-Ox) 400 mg PO DAILY [facility] Stop: 11/24/16 09:00 Last Admin: 11/22/16 10:49 Dose: 400 mg Methadone HCl (Methadone) 5 mg PO DAILY [facility] Last Admin: 11/22/16 09:13 Dose: 5 mg Methadone HCl (Methadone) 80 mg PO DAILY [facility] Last Admin: 11/22/16 08:55 Dose: 80 mg Metoprolol Tartrate (Lopressor) 12.5 mg PO Q12 [facility] Last Admin: 11/22/16 08:59 Dose: 12.5 mg Ondansetron HCl (Zofran Inj) 4 mg IV Q6 PRN PRN Reason: Nausea/Vomiting - Labs Labs: 11/22/16 04:25 11/22/16 04:25 - Constitutional Appears: Well, No Acute Distress - Head Exam Head Exam: ATRAUMATIC, NORMAL INSPECTION, NORMOCEPHALIC - Eye Exam Eye Exam: EOMI, Normal appearance, PERRL Pupil Exam: NORMAL ACCOMODATION, PERRL - ENT Exam ENT Exam: Mucous Membranes Moist, Normal Exam - Neck Exam Neck Exam: Full ROM, Normal Inspection. absent: Lymphadenopathy - Respiratory Exam Respiratory Exam: Clear to Ausculation Bilateral, NORMAL BREATHING PATTERN - Cardiovascular Exam Cardiovascular Exam: REGULAR RHYTHM, +S1, +S2. absent: Murmur - GI/Abdominal Exam GI & Abdominal Exam: Soft, Normal Bowel Sounds. absent: Tenderness - Extremities Exam Extremities Exam: Full ROM, Normal Capillary Refill, Normal Inspection. absent : Joint Swelling, Pedal Edema - Back Exam Back Exam: NORMAL INSPECTION - Neurological Exam Neurological Exam: Alert, Awake, CN II-XII Intact, Normal Gait, Oriented x3 - Psychiatric Exam Psychiatric exam: Normal Affect, Normal Mood - Skin Skin Exam: Dry, Intact, Normal Color, Warm Assessment and Plan - Assessment and Plan (Free Text) Assessment: Hypotension- Resolved NSTEMI in the setting of Hypotension R/O Underlying CAD PE Ruled out Continue ASA.BB Troponin Trended down Audio/Video Technician on Board
[2016-11-22 13:23] LABS: HEPATITIS C ANTIBODY REACTIVE (NEGATIVE)
[2016-11-22] MEDS: Apap-Butalbital-Caffeine 325-50-40mg Tab PO PRN (19:13)
[2016-11-23 06:03] LABS: HEMOGLOBIN 11.9 g/dL (12.0-16.0); MEAN CELL VOLUME 87.2 fl (81.0-99.0); MEAN CORPUSCULAR HEMOGLOBIN 29.4 pg (27.0-31.0); MEAN CORPUSCULAR HGB CONC 33.7 g/dL (33.0-37.0); RBC 4.06 Mil/uL (3.80-5.20); RED CELL DISTRIBUTION WIDTH 13.4 % (11.5-14.5); WHITE BLOOD COUNT 3.8 K/uL (4.8-10.8)
[2016-11-23 06:10] LABS: ALB/GLOB RATIO 1.3 (1.0-2.1); ALBUMIN 3.5 g/dL (3.5-5.0); ALT/SGPT 47 U/L (9-52); AST/SGOT 32 U/L (14-36); BLOOD UREA NITROGEN 11 mg/dl (7-17); CALCIUM 9.1 mg/dL (8.4-10.2); GFR AFRICAN-AMERICAN > 60; GFR NON-AFRICAN AMERICAN > 60; HDL CHOLESTEROL 28 MG/DL (30-70)
[2016-11-23 06:21] LABS: LDL CHOLESTEROL 89 mg/dL (0-129)
--- NOTE | 2016-11-23 07:34 | CP.CCUPN ---
CCU Subjective - Physician Review Events Since Last Encounter (Free Text): 11/23/16 13:30 The patient was Seen and examined by me at the bedside, Medical records reviewed and Management issues were discussed and formulated with the house staff. Clinically improving, awake and oriented x3 Sitting comfortable in chair. BP better 120-140/70-890, Afebrile. No CP/SOB, Fever/chills Morning labs reviewed, Top level trending down 0.783-->0.398 K 3.4 & Mg 1.6 supplemented CCU Objective - Vital Signs / Intake & Output Vital Signs (Last 4 hours): Vital Signs Temp Pulse Resp BP Pulse Ox 11/23/16 06:00 59 L 21 132/74 95 11/23/16 04:00 98.1 F 55 L 13 122/72 96 Intake and Output (Last 8hrs): Intake & Output 11/22/16 11/23/16 11/23/16 22:59 06:59 14:59 Intake Total 150 120 Output Total 550 650 Balance -400 -530 Intake: IV 0 0 Oral 150 120 Output: Urine 550 650 Urine, Voided 550 650 Other: # Voids Urine, Voided 1 1 - Physical Exam Head: Positive for: Atraumatic, Normocephalic Pupils: Positive for: PERRL Conjunctiva: Positive for: Normal Mouth: Positive for: Moist Mucous Membranes Neck: Positive for: Normal Range of Motion Respiratory/Chest: Positive for: Clear to Auscultation, Good Air Exchange. Negative for: Wheezes, Rales, Rhonchi Cardiovascular: Positive for: Regular Rate and Rhythm, Murmurs (systolic murmur 2/6 aortic,pulmonar,tricuspid area,not radiated.), Normal S1, S2 Abdomen: Positive for: Normal Bowel Sounds. Negative for: Tenderness, Distention Upper Extremity: Positive for: Normal Inspection Lower Extremity: Positive for: Normal Inspection. Negative for: Edema, CALF TENDERNESS Neurological: Positive for: Speech Normal, Motor Func Grossly Intact Skin: Positive for: Warm, Normal Color Psychiatric: Positive for: Alert, Oriented x 3 - Medications Active Medications: Active Medications Generic Name Dose Route Start Last Admin Trade Name Freq PRN Reason Stop Dose Admin Acetaminophen/Butalbital/Caffeine 1 tab 11/21/16 19:25 11/22/16 19:13 Fioricet PO 1 tab Q4 PRN Administration Headache Aspirin 325 mg 11/22/16 09:00 11/22/16 09:10 Aspirin PO 325 mg DAILY [facility] Administration Atorvastatin Calcium 20 mg 11/22/16 18:00 11/22/16 17:39 Lipitor PO 20 mg DAILY [facility] Administration Furosemide 20 mg 11/22/16 09:45 11/22/16 10:48 Lasix PO 20 mg DAILY [facility] Administration Lisinopril 5 mg 11/22/16 10:00 11/22/16 10:50 Zestril PO 5 mg DAILY [facility] Administration Magnesium Oxide 400 mg 11/22/16 09:45 11/22/16 10:49 Mag-Ox PO 11/24/16 09:00 400 mg DAILY [facility] Administration Methadone HCl 5 mg 11/22/16 09:00 11/22/16 09:13 Methadone PO 5 mg DAILY [facility] Administration Methadone HCl 80 mg 11/22/16 09:00 11/22/16 08:55 Methadone PO 80 mg DAILY [facility] Administration Metoprolol Tartrate 12.5 mg 11/21/16 21:00 11/22/16 21:55 Lopressor PO Not Given Q12 [facility] Ondansetron HCl 4 mg 11/21/16 19:25 Zofran Inj IV Q6 PRN Nausea/Vomiting - Patient Studies Lab Studies: Lab Studies 11/23/16 11/23/16 11/22/16 Range/Units 05:30 05:30 04:25 WBC 3.8 L (4.8-10.8) K/uL RBC 4.06 (3.80-5.20) Mil/uL Hgb 11.9 L (12.0-16.0) g/dL Hct 35.4 (34.0-47.0) % MCV 87.2 (81.0-99.0) fl MCH 29.4 (27.0-31.0) pg MCHC 33.7 (33.0-37.0) g/dL RDW 13.4 (11.5-14.5) % Plt Count 115 L (130-400) K/uL Sodium 141 (132-148) mmol/l Potassium 3.4 L (3.6-5.0) MMOL/L Chloride 101 (98-107) mmol/L Carbon Dioxide 34 H (22-30) mmol/L Anion Gap 9 L (10-20) BUN 11 (7-17) mg/dl Creatinine 0.8 (0.7-1.2) mg/dL Est GFR ( Amer) > 60 Est GFR (Non-Af Amer) > 60 Random Glucose 98 (65-105) mg/dL Calcium 9.1 (8.4-10.2) mg/dL Magnesium (1.6-2.3) MG/DL Total Bilirubin 0.6 (0.2-1.3) mg/dl AST 32 (14-36) U/L ALT 47 (9-52) U/L Alkaline Phosphatase 65 (38-126) U/L Troponin I (0.00-0.120) ng/mL NT-Pro-B Natriuret Pep (0-450) pg/ml Total Protein 6.1 L (6.3-8.2) G/DL Albumin 3.5 (3.5-5.0) g/dL Globulin 2.6 (2.2-3.9) gm/dL Albumin/Globulin Ratio 1.3 (1.0-2.1) Triglycerides 209 H (0-149) mg/DL Cholesterol 142 (0-199) mg/dL LDL Cholesterol Direct 89 (0-129) mg/dL HDL Cholesterol 28 L (30-70) MG/DL Hep Bs Antigen (NEGATIVE) Hep Bs Antibody Negative (NEGATIVE) Hepatitis C Antibody (NEGATIVE) 11/22/16 Range/Units 04:25 WBC (4.8-10.8) K/uL RBC (3.80-5.20) Mil/uL Hgb (12.0-16.0) g/dL Hct (34.0-47.0) % MCV (81.0-99.0) fl MCH (27.0-31.0) pg MCHC (33.0-37.0) g/dL RDW (11.5-14.5) % Plt Count (130-400) K/uL Sodium 141 (132-148) mmol/l Potassium 3.8 (3.6-5.0) MMOL/L Chloride 106 (98-107) mmol/L Carbon Dioxide 30 (22-30) mmol/L Anion Gap 8 L (10-20) BUN 8 (7-17) mg/dl Creatinine 0.8 (0.7-1.2) mg/dL Est GFR ( Amer) > 60 Est GFR (Non-Af Amer) > 60 Random Glucose 89 (65-105) mg/dL Calcium 8.9 (8.4-10.2) mg/dL Magnesium 1.6 (1.6-2.3) MG/DL Total Bilirubin 0.5 (0.2-1.3) mg/dl AST 39 H (14-36) U/L ALT 42 (9-52) U/L Alkaline Phosphatase 63 (38-126) U/L Troponin I 0.7830 H* (0.00-0.120) ng/mL NT-Pro-B Natriuret Pep 3840 H (0-450) pg/ml Total Protein 5.8 L (6.3-8.2) G/DL Albumin 3.2 L D (3.5-5.0) g/dL Globulin 2.6 (2.2-3.9) gm/dL Albumin/Globulin Ratio 1.2 (1.0-2.1) Triglycerides (0-149) mg/DL Cholesterol (0-199) mg/dL LDL Cholesterol Direct (0-129) mg/dL HDL Cholesterol (30-70) MG/DL Hep Bs Antigen Negative (NEGATIVE) Hep Bs Antibody (NEGATIVE) Hepatitis C Antibody Reactive H (NEGATIVE) Laboratory Results - last 24 hr 11/22/16 11/22/16 11/23/16 04:25 04:25 05:30 WBC 3.8 L RBC 4.06 Hgb 11.9 L Hct 35.4 MCV 87.2 MCH 29.4 MCHC 33.7 RDW 13.4 Plt Count 115 L Sodium 141 Potassium 3.8 Chloride 106 Carbon Dioxide 30 Anion Gap 8 L BUN 8 Creatinine 0.8 Est GFR ( Amer) > 60 Est GFR (Non-Af Amer) > 60 Random Glucose 89 Calcium 8.9 Magnesium 1.6 Total Bilirubin 0.5 AST 39 H ALT 42 Alkaline Phosphatase 63 Troponin I 0.7830 H* NT-Pro-B Natriuret Pep 3840 H Total Protein 5.8 L Albumin 3.2 L D Globulin 2.6 Albumin/Globulin Ratio 1.2 Triglycerides Cholesterol LDL Cholesterol Direct HDL Cholesterol Hep Bs Antigen Negative Hep Bs Antibody Negative Hepatitis C Antibody Reactive H 11/23/16 05:30 WBC RBC Hgb Hct MCV MCH MCHC RDW Plt Count Sodium 141 Potassium 3.4 L Chloride 101 Carbon Dioxide 34 H Anion Gap 9 L BUN 11 Creatinine 0.8 Est GFR ( Amer) > 60 Est GFR (Non-Af Amer) > 60 Random Glucose 98 Calcium 9.1 Magnesium Total Bilirubin 0.6 AST 32 ALT 47 Alkaline Phosphatase 65 Troponin I NT-Pro-B Natriuret Pep Total Protein 6.1 L Albumin 3.5 Globulin 2.6 Albumin/Globulin Ratio 1.3 Triglycerides 209 H Cholesterol 142 LDL Cholesterol Direct 89 HDL Cholesterol 28 L Hep Bs Antigen Hep Bs Antibody Hepatitis C Antibody Review of Systems - Cardiovascular Cardiovascular: absent: As Per HPI, Acrocyanosis, Chest Pain, Chest Pain at Rest , Chest Pain with Activity, Claudication, Diaphoresis, Dyspnea, Dyspnea on Exertion, Edema, Irregular Heart Rhythm, Pain Radiating to Arm/Neck/Jaw, Leg Edema, Leg Ulcers, Lightheadedness, Orthopnea, Palpitations, Paroxysmal Nocturnal Dyspnea, Pedal Edema, Radiating Pain, Rapid Heart Rate, Slow Heart Rate, Syncope, Other, UNREMARKABLE - Respiratory Respiratory: absent: As Per HPI, Cough, Dyspnea, Hemoptysis, Dyspnea on Exertion , Wheezing, Snoring, Stridor, Pain on Inspiration, Chest Congestion, Excessive Mucous Production, Change in Mucous Color, Pain with Coughing, Other, UNREMARKABLE Critical Care Progress Note - Extremities/Vascular Does the Patient have a Central Venous Catheter?: No Does the Patient need a Central Venous Catheter?: No Does the Patient have a Quiroz Catheter?: No Does the Patient need a Quiroz Catheter?: No - Nutrition Nutrition: Nutrition Category Date Time Status Cardiac [Heart Healthy Diet] [DIET] Diets 11/22/16 Lunch Active Assessment/Plan (1) Drug-induced hypotension Current Visit: Yes Status: Acute Comment: Resolved Secondary to antihypertensive medications hydralazine, clonidine,Labetalol (2) NSTEMI (non-ST elevated myocardial infarction) Current Visit: Yes Status: Acute Comment: ASA, BB, Statins and PO lasix Lovenox 40 mg Q Daily (3) Opioid withdrawal Current Visit: Yes Status: Acute Comment: Cont. methadone 85 mg daily (4) Migraine headache Current Visit: Yes Status: Acute Comment: Fioricet 1 tab q4h PRN
[2016-11-23] MEDS ORDERED: Enoxaparin 40 mg Syringe SC SCH (09:00)
[2016-11-23] MEDS: Magnesium Oxide 400 mg Tab UD PO SCH (09:10)
--- NOTE | 2016-11-23 10:59 | CP.PCM.PN ---
Subjective - Date & Time of Evaluation Date of Evaluation: 11/23/16 Time of Evaluation: 10:59 - Subjective Subjective: pt resting comfortably supine. no complaints. trop remains elevated. bnp remains elevated. pt w/o cp etiology of trop is unclear. Objective - Vital Signs/Intake and Output Vital Signs (last 24 hours): Temp Pulse Resp BP Pulse Ox 98.5 F 55 L 20 129/88 98 11/23/16 08:00 11/23/16 09:50 11/23/16 09:50 11/23/16 09:50 11/23/16 09:50 Intake and Output: 11/23/16 11/23/16 06:59 18:59 Intake Total 120 200 Output Total 1200 350 Balance -1080 -150 - Medications Medications: Current Medications Acetaminophen/Butalbital/Caffeine (Fioricet) 1 tab PO Q4 PRN PRN Reason: Headache Last Admin: 11/22/16 19:13 Dose: 1 tab Aspirin (Aspirin) 325 mg PO DAILY [facility] Last Admin: 11/23/16 09:12 Dose: 325 mg Atorvastatin Calcium (Lipitor) 20 mg PO DAILY [facility] Last Admin: 11/23/16 09:10 Dose: 20 mg Furosemide (Lasix) 20 mg PO DAILY [facility] Last Admin: 11/23/16 09:10 Dose: 20 mg Lisinopril (Zestril) 10 mg PO DAILY [facility] Magnesium Oxide (Mag-Ox) 400 mg PO DAILY [facility] Stop: 11/24/16 09:00 Last Admin: 11/23/16 09:10 Dose: 400 mg Methadone HCl (Methadone) 5 mg PO DAILY [facility] Last Admin: 11/23/16 09:35 Dose: 5 mg Methadone HCl (Methadone) 80 mg PO DAILY [facility] Last Admin: 11/23/16 09:12 Dose: 80 mg Metoprolol Tartrate (Lopressor) 12.5 mg PO Q12 [facility] Last Admin: 11/23/16 09:14 Dose: Not Given Ondansetron HCl (Zofran Inj) 4 mg IV Q6 PRN PRN Reason: Nausea/Vomiting - Labs Labs: 11/23/16 05:30 11/23/16 05:30 - Constitutional Appears: Well - Head Exam Head Exam: ATRAUMATIC, NORMAL INSPECTION, NORMOCEPHALIC - Eye Exam Eye Exam: EOMI, Normal appearance, PERRL. absent: Conjunctival injection, Nystagmus, Periorbital swelling, Periorbital tenderness, Scleral icterus Pupil Exam: NORMAL ACCOMODATION, PERRL - ENT Exam ENT Exam: Mucous Membranes Moist, Normal Exam. absent: Mucous Membranes Dry, Normal External Ear Exam, Normal Oropharynx, TM's Normal Bilaterally - Neck Exam Neck Exam: Full ROM, Normal Inspection. absent: Lymphadenopathy, Meningismus, Tenderness, Thyromegaly - Respiratory Exam Respiratory Exam: Decreased Breath Sounds, Rales, Wheezes. absent: Accessory Muscle Use, Chest Wall Tenderness, Clear to Ausculation Bilateral, Prolonged Expiratory Phase, Rhonchi, Respiratory Distress, Stridor, NORMAL BREATHING PATTERN - Cardiovascular Exam Cardiovascular Exam: REGULAR RHYTHM, +S1, +S2. absent: Murmur - GI/Abdominal Exam GI & Abdominal Exam: Soft, Normal Bowel Sounds. absent: Bruit, Distended, Firm , Guarding, Rigid, Tenderness, Diminished Bowel Sounds, Hernia, Hyperactive Bowel Sounds, Hypoactive Bowel Sounds, Organomegaly, Pulsatile Mass, Rebound, Mass - Extremities Exam Extremities Exam: Full ROM, Normal Capillary Refill, Normal Inspection, Pedal Edema. absent: Calf Tenderness, Joint Swelling, Tenderness - Back Exam Back Exam: NORMAL INSPECTION. absent: CVA tenderness (L), CVA tenderness (R), Full ROM, muscle spasm, paraspinal tenderness, rash noted, tenderness, vertebral tenderness - Neurological Exam Neurological Exam: Alert, Awake, CN II-XII Intact, Normal Gait, Oriented x3. absent: Abnormal Gait, Altered, Motor Sensory Deficit, Reflexes Normal - Psychiatric Exam Psychiatric exam: Normal Affect, Normal Mood. absent: Agitated, Anxious, Depressed, Flat Affect, Homicidal Ideation, Manic, Suicidal Ideation - Skin Skin Exam: Dry, Intact, Normal Color, Warm. absent: Abrasion, Cyanosis, Diaphoretic, Erythema, Mottled, Pallor, Pallor, Petechiae, Rash, Urticaria, Vesicles Assessment and Plan (1) PHT (pulmonary hypertension) Status: Acute (2) Tricuspid regurgitation Status: Acute (3) Hypotension Status: Acute (4) Erythrocytosis Status: Acute (5) Opioid dependence Status: Acute (6) Prolonged Q-T interval on ECG Status: Acute (7) Elevated troponin I level Status: Acute - Assessment and Plan (Free Text) Plan: mag 2gm in addition to po trend trop (increase is of unknown etiology). unlikely cad etiology, may be due to hypotension and hypoperfusion. check tfts monitor lytes recheck qt no dvt or pe noted should be on dvt prophylaxis continue current meds 90 min total care time
[2016-11-23] MEDS ORDERED: Magnesium Sulfate 2 gm/50 ml 2 GM/50 ML BAG IVPB ONE (11:36)
[2016-11-23] MEDS ORDERED: Potassium Chloride 20 mEq ER Tab PO ONE (14:00)
[2016-11-24 08:04] LABS: BASO % 0.3 % (0.0-2.0); EOS # 0.1 K/uL (0.0-0.7); EOS % 2.5 % (0.0-4.0); HEMOGLOBIN 12.9 g/dL (12.0-16.0); LYMPH % 47.9 % (20.0-40.0); MEAN CELL VOLUME 87.5 fl (81.0-99.0); MEAN CORPUSCULAR HGB CONC 34.3 g/dL (33.0-37.0); MEAN PLATELET VOLUME 9.9 fl (7.2-11.7); MONO # 0.3 K/uL (0.0-0.8); MONO % 8.2 % (0.0-10.0); NEUT # 1.7 K/uL (1.8-7.0); NEUT % 41.1 % (50.0-75.0); NRBC % 0.2 % (0.0-0.0); RBC 4.28 Mil/uL (3.80-5.20); WHITE BLOOD COUNT 4.1 K/uL (4.8-10.8)
[2016-11-24 08:34] LABS: ALB/GLOB RATIO 1.3 (1.0-2.1); ALBUMIN 3.8 g/dL (3.5-5.0); ALT/SGPT 61 U/L (9-52); AST/SGOT 48 U/L (14-36); BLOOD UREA NITROGEN 17 mg/dl (7-17); CALCIUM 9.4 mg/dL (8.4-10.2); GFR AFRICAN-AMERICAN > 60; GFR NON-AFRICAN AMERICAN > 60; MAGNESIUM 2.2 MG/DL (1.6-2.3)
[2016-11-24] MEDS: Magnesium Oxide 400 mg Tab UD PO SCH (08:48)
--- NOTE | 2016-11-24 13:52 | CP.PCM.PN ---
Subjective - Date & Time of Evaluation Date of Evaluation: 11/24/16 Time of Evaluation: 14:29 - Subjective Subjective: pt without complaints. no cp or sob. she has no hx of syncope aside from the day she presented and was found to be severely dehydrated and hypotensive. Objective - Vital Signs/Intake and Output Vital Signs (last 24 hours): Temp Pulse Resp BP Pulse Ox 98.6 F 56 L 20 101/53 L 98 11/24/16 12:31 11/24/16 12:31 11/24/16 12:31 11/24/16 12:31 11/24/16 12:31 Intake and Output: 11/24/16 11/24/16 06:59 18:59 Intake Total 240 Output Total 250 Balance -10 - Medications Medications: Current Medications Acetaminophen/Butalbital/Caffeine (Fioricet) 1 tab PO Q4 PRN PRN Reason: Headache Last Admin: 11/22/16 19:13 Dose: 1 tab Aspirin (Aspirin) 325 mg PO DAILY [facility] Last Admin: 11/24/16 08:54 Dose: 325 mg Atorvastatin Calcium (Lipitor) 20 mg PO DAILY [facility] Last Admin: 11/24/16 08:49 Dose: 20 mg Lisinopril (Zestril) 10 mg PO DAILY [facility] Last Admin: 11/24/16 08:48 Dose: 10 mg Methadone HCl (Methadone) 5 mg PO DAILY [facility] Last Admin: 11/24/16 09:08 Dose: 5 mg Methadone HCl (Methadone) 80 mg PO DAILY [facility] Last Admin: 11/24/16 09:07 Dose: 80 mg Metoprolol Tartrate (Lopressor) 12.5 mg PO Q12 [facility] Last Admin: 11/24/16 08:48 Dose: 12.5 mg Ondansetron HCl (Zofran Inj) 4 mg IV Q6 PRN PRN Reason: Nausea/Vomiting - Labs Labs: 11/24/16 06:00 11/24/16 05:30 - Constitutional Appears: Well - Head Exam Head Exam: ATRAUMATIC, NORMAL INSPECTION, NORMOCEPHALIC - Eye Exam Eye Exam: EOMI, Normal appearance, PERRL. absent: Conjunctival injection, Nystagmus, Periorbital swelling, Periorbital tenderness, Scleral icterus Pupil Exam: NORMAL ACCOMODATION, PERRL - ENT Exam ENT Exam: Mucous Membranes Moist, Normal Exam. absent: Mucous Membranes Dry, Normal External Ear Exam, Normal Oropharynx, TM's Normal Bilaterally - Neck Exam Neck Exam: Full ROM, Normal Inspection - Respiratory Exam Respiratory Exam: Clear to Ausculation Bilateral, NORMAL BREATHING PATTERN. absent: Accessory Muscle Use, Chest Wall Tenderness, Decreased Breath Sounds, Prolonged Expiratory Phase, Rales, Rhonchi, Wheezes, Respiratory Distress, Stridor - Cardiovascular Exam Cardiovascular Exam: REGULAR RHYTHM, +S1, +S2, Murmur. absent: Bradycardia, Tachycardia, Clicks, Diastolic murmur, Gallop, Irregular Rhythm, JVD, RRR, Rubs , +S4 - GI/Abdominal Exam GI & Abdominal Exam: Soft, Normal Bowel Sounds - Rectal Exam Rectal Exam: Deferred - Extremities Exam Extremities Exam: Full ROM, Normal Capillary Refill, Normal Inspection. absent : Calf Tenderness, Joint Swelling, Pedal Edema, Tenderness - Back Exam Back Exam: NORMAL INSPECTION. absent: CVA tenderness (L), CVA tenderness (R), Full ROM, muscle spasm, paraspinal tenderness, rash noted, tenderness, vertebral tenderness - Neurological Exam Neurological Exam: Alert, Awake, CN II-XII Intact, Normal Gait, Oriented x3. absent: Abnormal Gait, Altered, Motor Sensory Deficit, Reflexes Normal - Psychiatric Exam Psychiatric exam: Normal Affect, Normal Mood. absent: Agitated, Anxious, Depressed, Flat Affect, Homicidal Ideation, Manic, Suicidal Ideation - Skin Skin Exam: Dry, Intact, Normal Color, Warm. absent: Abrasion, Cyanosis, Diaphoretic, Erythema, Mottled, Pallor, Pallor, Petechiae, Rash, Urticaria, Vesicles Assessment and Plan (1) PHT (pulmonary hypertension) Status: Acute (2) Tricuspid regurgitation Status: Acute (3) Hypotension Status: Acute (4) Erythrocytosis Status: Acute (5) Opioid dependence Status: Acute (6) Prolonged Q-T interval on ECG Status: Acute (7) Elevated troponin I level Status: Acute - Assessment and Plan (Free Text) Plan: Given positive trop and persistent bradycardia, will do cardiac cath to ro cad tomorrow at [facility]. pt allergic to shell fish needs pepcid, benadryl, then solumedrol in lab. ivf to start in am 1/2ns at 75 npo p mn discussed with pt and family at length. informed consent obtained verbally. 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 risk elena and alt explained. stop metoprolol monitor lytes daily 90 min total care.
[2016-11-24] MEDS: Apap-Butalbital-Caffeine 325-50-40mg Tab PO PRN (16:28)
--- NOTE | 2016-11-24 23:53 | CP.PCM.PN ---
Subjective - Date & Time of Evaluation Date of Evaluation: 11/24/16 Time of Evaluation: 15:00 - Subjective Subjective: Seen and examined at the bed side. scheduled for Cardiac Catheterization. Objective - Vital Signs/Intake and Output Vital Signs (last 24 hours): Temp Pulse Resp BP Pulse Ox 98.3 F 57 L 20 139/83 98 11/24/16 21:00 11/24/16 21:00 11/24/16 21:00 11/24/16 21:00 11/24/16 21:00 - Medications Medications: Current Medications Acetaminophen/Butalbital/Caffeine (Fioricet) 1 tab PO Q4 PRN PRN Reason: Headache Last Admin: 11/24/16 16:28 Dose: 1 tab Aspirin (Aspirin) 325 mg PO DAILY [facility] Last Admin: 11/24/16 08:54 Dose: 325 mg Atorvastatin Calcium (Lipitor) 20 mg PO DAILY [facility] Last Admin: 11/24/16 08:49 Dose: 20 mg Diphenhydramine HCl (Benadryl) 50 mg PO ONCE [facility] Famotidine (Pepcid) 40 mg PO ONCE ONE Stop: 11/25/16 09:01 Lisinopril (Zestril) 10 mg PO DAILY [facility] Last Admin: 11/24/16 08:48 Dose: 10 mg Methadone HCl (Methadone) 5 mg PO DAILY [facility] Last Admin: 11/24/16 09:08 Dose: 5 mg Methadone HCl (Methadone) 80 mg PO DAILY [facility] Last Admin: 11/24/16 09:07 Dose: 80 mg Ondansetron HCl (Zofran Inj) 4 mg IV Q6 PRN PRN Reason: Nausea/Vomiting - Labs Labs: 11/24/16 06:00 11/24/16 05:30 - Constitutional Appears: Well, No Acute Distress - Head Exam Head Exam: ATRAUMATIC, NORMAL INSPECTION, NORMOCEPHALIC - Eye Exam Eye Exam: EOMI, Normal appearance, PERRL Pupil Exam: NORMAL ACCOMODATION, PERRL - ENT Exam ENT Exam: Mucous Membranes Moist, Normal Exam - Neck Exam Neck Exam: Full ROM, Normal Inspection. absent: Lymphadenopathy - Respiratory Exam Respiratory Exam: Clear to Ausculation Bilateral, NORMAL BREATHING PATTERN - Cardiovascular Exam Cardiovascular Exam: REGULAR RHYTHM, +S1, +S2. absent: Murmur - GI/Abdominal Exam GI & Abdominal Exam: Soft, Normal Bowel Sounds. absent: Tenderness - Extremities Exam Extremities Exam: Full ROM, Normal Capillary Refill, Normal Inspection. absent : Joint Swelling, Pedal Edema - Back Exam Back Exam: NORMAL INSPECTION - Neurological Exam Neurological Exam: Alert, Awake, CN II-XII Intact, Normal Gait, Oriented x3 Neuro motor strength exam: Left Upper Extremity: 5, Right Upper Extremity: 5, Left Lower Extremity: 5, Right Lower Extremity: 5 - Psychiatric Exam Psychiatric exam: Normal Affect, Normal Mood - Skin Skin Exam: Dry, Intact, Normal Color, Warm Assessment and Plan (1) NSTEMI (non-ST elevated myocardial infarction) Assessment & Plan: Hypotension- Resolved NSTEMI in the setting of Hypotension R/O Underlying CAD PE Ruled out Continue ASA.BB Troponin Trended down Advanced Practice Provider on 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
[2016-11-25 05:19] LABS: BASO % 0.4 % (0.0-2.0); EOS # 0.1 K/uL (0.0-0.7); HEMOGLOBIN 13.1 g/dL (12.0-16.0); LYMPH % 49.9 % (20.0-40.0); MEAN CELL VOLUME 87.8 fl (81.0-99.0); MEAN CORPUSCULAR HEMOGLOBIN 30.1 pg (27.0-31.0); MEAN CORPUSCULAR HGB CONC 34.3 g/dL (33.0-37.0); MEAN PLATELET VOLUME 9.9 fl (7.2-11.7); MONO # 0.3 K/uL (0.0-0.8); MONO % 7.5 % (0.0-10.0); NEUT # 1.6 K/uL (1.8-7.0); NEUT % 39.2 % (50.0-75.0); NRBC % 0.1 % (0.0-0.0); RBC 4.35 Mil/uL (3.80-5.20); RED CELL DISTRIBUTION WIDTH 13.1 % (11.5-14.5); WHITE BLOOD COUNT 4.1 K/uL (4.8-10.8)
[2016-11-25 05:26] LABS: ALB/GLOB RATIO 1.3 (1.0-2.1); ALBUMIN 3.7 g/dL (3.5-5.0); ALT/SGPT 70 U/L (9-52); AST/SGOT 43 U/L (14-36); BLOOD UREA NITROGEN 18 mg/dl (7-17); CALCIUM 8.9 mg/dL (8.4-10.2); GFR AFRICAN-AMERICAN > 60; GFR NON-AFRICAN AMERICAN > 60
[2016-11-25 06:34] LABS: PARTIAL THROMBOPLASTIN TIME 26.8 Seconds (25.6-37.1); PROTHROMBIN TIME 9.8 Seconds (9.8-13.1)
[2016-11-25] MEDS ORDERED: Famotidine 40 MG/5 ML PO ONE (09:00)
[2016-11-25] MEDS ORDERED: Famotidine 40 MG/5 ML PO SCH (09:00)
--- NOTE | 2016-11-25 10:14 | CARD ---
APPROVED REPORT EKG Measurement Heart [id number] <Conclusion> Sinus bradycardia Possible Left atrial enlargement Nonspecific ST abnormality Prolonged QT Abnormal ECG
--- NOTE | 2016-11-25 18:43 | PN ---
DATE: 11/25/2016 CRITICAL CARE PROGRESS NOTE LOCATION: The patient is in ICU, bed 426. TIME SPENT: 35 minutes. SUBJECTIVE: The patient is seen and evaluated at the bedside. 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 Blood pressure responded with IV hydration, so also is hemoglobin and hematocrit. Sensory, remains alert and awake, follows commands appropriately. Denies headache, nausea, vomiting, diarrhea. No shortness of breath, chest pain, palpitation. No abdominal pain or diarrhea or dysuria. PHYSICAL EXAMINATION VITAL SIGNS: Temperature 98.7, heart rate 56 regular, respiratory rate 13, thoracoabdominal blood pressure 132/94, pulse oximetry 97% on room air. Intake 870, output 900, negative balance 30 mL. Weight 149 pounds. HEAD, EYES, EARS, NOSE AND THROAT: Pupils are reactive. Conjunctivae pink. Sclerae anicteric. NECK: Supple. Trachea is central. CHEST: Bilateral breath sounds. Clear to auscultation. HEART: Rhythm regular. S1 and S2 normal intensity. No S3, S4, or gallop. No audible murmur. ABDOMEN: Bowel sounds present, soft. Liver and spleen not palpable, bladder not distended. EXTREMITIES: Unremarkable. NEUROLOGIC: Nonfocal. LABORATORY DATA: WBC 4.1, hemoglobin 13.1, hematocrit 38.2, platelet count 160, neutrophils 39, lymphocytes 49, monocytes 7.1. PT 9.8, INR 1, PTT 26.8. SMA-7: Sodium 141, potassium 4.4, chloride 99, CO2 is 34, blood urea nitrogen 18, creatinine 0.9, glucose 108, calcium 8.9, magnesium 2. Total bilirubin 0.3, AST 43, ALT 70, alkaline phosphatase 69, total protein is 6.4, albumin 3.7, albumin-globulin ratio 1.3. Troponin 0.[address] negative for pulmonary embolism. IMPRESSION: 1. Pulmonary hypertension. 2. Tricuspid regurgitation. 3. Status post hypotension resolved with IV hydration, erythrocytosis improved with IV hydration. 4. 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 5. Elevated troponin level, seen by windows server architect, scheduled for cardiac catheterization this afternoon. PLAN: Given Pepcid 40 mg p.o. x1, methadone 80 mg p.o. x1, lisinopril 10 mg p.o. daily, Benadryl 50 mg once this morning. Continue Lipitor, aspirin, and acetaminophen/butalbital/caffeine 1 tablet b.i.d. q.4h. for migraine. Angel Hensley MD
--- NOTE | 2016-11-26 00:23 | CP.PCM.PN ---
Objective - Vital Signs/Intake and Output Vital Signs (last 24 hours): Temp Pulse Resp BP Pulse Ox 98.2 F 71 18 133/80 95 11/25/16 23:46 11/25/16 23:46 11/25/16 23:46 11/25/16 23:46 11/25/16 23:46 - Medications Medications: Current Medications Acetaminophen/Butalbital/Caffeine (Fioricet) 1 tab PO Q4 PRN PRN Reason: Headache Last Admin: 11/24/16 16:28 Dose: 1 tab Aspirin (Aspirin) 325 mg PO DAILY [facility] Last Admin: 11/25/16 17:01 Dose: Not Given Atorvastatin Calcium (Lipitor) 20 mg PO DAILY [facility] Last Admin: 11/25/16 08:23 Dose: 20 mg Diphenhydramine HCl (Benadryl) 50 mg PO ONCE [facility] Last Admin: 11/25/16 12:18 Dose: 50 mg Lisinopril (Zestril) 10 mg PO DAILY [facility] Last Admin: 11/25/16 08:24 Dose: 10 mg Methadone HCl (Methadone) 5 mg PO DAILY [facility] Last Admin: 11/25/16 08:35 Dose: 5 mg Methadone HCl (Methadone) 80 mg PO DAILY [facility] Last Admin: 11/25/16 08:33 Dose: 80 mg Ondansetron HCl (Zofran Inj) 4 mg IV Q6 PRN PRN Reason: Nausea/Vomiting - Labs Labs: 11/25/16 04:20 11/25/16 04:20 PT 9.8 Seconds (9.8-13.1) 11/25/16 04:20 INR 1.0 (0.9-1.2) 11/25/16 04:20 APTT 26.8 Seconds (25.6-37.1) 11/25/16 04:20 Assessment and Plan (1) Syncope Status: Acute (2) Hypotension Status: Acute (3) Prolonged Q-T interval on ECG Status: Acute (4) PHT (pulmonary hypertension) Status: Acute (5) Elevated troponin I level Status: Acute (6) Erythrocytosis Status: Acute (7) Opioid dependence Status: Acute (8) Tricuspid regurgitation Status: Acute
--- NOTE | 2016-11-26 01:11 | CP.PCM.PN ---
Subjective - Date & Time of Evaluation Date of Evaluation: 11/25/16 Time of Evaluation: 22:00 - Subjective Subjective: Seen and examined at the bed side. S/P Cardiac Catheterization with normal Coronaries. Objective - Vital Signs/Intake and Output Vital Signs (last 24 hours): Temp Pulse Resp BP Pulse Ox 98.2 F 71 18 133/80 95 11/25/16 23:46 11/25/16 23:46 11/25/16 23:46 11/25/16 23:46 11/25/16 23:46 - Medications Medications: Current Medications Acetaminophen/Butalbital/Caffeine (Fioricet) 1 tab PO Q4 PRN PRN Reason: Headache Last Admin: 11/24/16 16:28 Dose: 1 tab Aspirin (Aspirin) 325 mg PO DAILY [facility] Last Admin: 11/25/16 17:01 Dose: Not Given Atorvastatin Calcium (Lipitor) 20 mg PO DAILY [facility] Last Admin: 11/25/16 08:23 Dose: 20 mg Diphenhydramine HCl (Benadryl) 50 mg PO ONCE [facility] Last Admin: 11/25/16 12:18 Dose: 50 mg Lisinopril (Zestril) 10 mg PO DAILY [facility] Last Admin: 11/25/16 08:24 Dose: 10 mg Methadone HCl (Methadone) 5 mg PO DAILY [facility] Last Admin: 11/25/16 08:35 Dose: 5 mg Methadone HCl (Methadone) 80 mg PO DAILY [facility] Last Admin: 11/25/16 08:33 Dose: 80 mg Ondansetron HCl (Zofran Inj) 4 mg IV Q6 PRN PRN Reason: Nausea/Vomiting - Labs Labs: 11/25/16 04:20 11/25/16 04:20 PT 9.8 Seconds (9.8-13.1) 11/25/16 04:20 INR 1.0 (0.9-1.2) 11/25/16 04:20 APTT 26.8 Seconds (25.6-37.1) 11/25/16 04:20 - Constitutional Appears: Well, No Acute Distress - Head Exam Head Exam: ATRAUMATIC, NORMAL INSPECTION, NORMOCEPHALIC - Eye Exam Eye Exam: EOMI, Normal appearance, PERRL Pupil Exam: NORMAL ACCOMODATION, PERRL - ENT Exam ENT Exam: Mucous Membranes Moist, Normal Exam - Neck Exam Neck Exam: Full ROM, Normal Inspection. absent: Lymphadenopathy - Respiratory Exam Respiratory Exam: Clear to Ausculation Bilateral, NORMAL BREATHING PATTERN - Cardiovascular Exam Cardiovascular Exam: REGULAR RHYTHM, +S1, +S2. absent: Murmur - GI/Abdominal Exam GI & Abdominal Exam: Soft, Normal Bowel Sounds. absent: Tenderness - Extremities Exam Extremities Exam: Full ROM, Normal Capillary Refill, Normal Inspection. absent : Joint Swelling, Pedal Edema - Back Exam Back Exam: NORMAL INSPECTION - Neurological Exam Neurological Exam: Alert, Awake, CN II-XII Intact, Normal Gait, Oriented x3 Neuro motor strength exam: Left Upper Extremity: 5, Right Upper Extremity: 5, Left Lower Extremity: 5, Right Lower Extremity: 5 - Psychiatric Exam Psychiatric exam: Normal Affect, Normal Mood - Skin Skin Exam: Dry, Intact, Normal Color, Warm Assessment and Plan (1) NSTEMI (non-ST elevated myocardial infarction) Assessment & Plan: Hypotension- Resolved NSTEMI in the setting of Hypotension - CAD Ruled out PE Ruled out Continue ASA.BB and Statin Troponin Trended down Process Pumper on 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
[2016-11-26 03:44] LABS: HAV AB (IGM) Nonreactive (Nonreactive)
[2016-11-26] MEDS: Apap-Butalbital-Caffeine 325-50-40mg Tab PO PRN (06:37)
[2016-11-26 07:16] LABS: BLOOD UREA NITROGEN 14 mg/dl (7-17); CALCIUM 9.6 mg/dL (8.4-10.2); GFR AFRICAN-AMERICAN > 60; GFR NON-AFRICAN AMERICAN > 60
[2016-11-26 07:20] LABS: HEMOGLOBIN 13.8 g/dL (12.0-16.0); MEAN CELL VOLUME 87.6 fl (81.0-99.0); MEAN CORPUSCULAR HEMOGLOBIN 30.2 pg (27.0-31.0); MEAN CORPUSCULAR HGB CONC 34.5 g/dL (33.0-37.0); RBC 4.56 Mil/uL (3.80-5.20); RED CELL DISTRIBUTION WIDTH 13.3 % (11.5-14.5); WHITE BLOOD COUNT 6.8 K/uL (4.8-10.8)
--- NOTE | 2016-11-26 16:10 | CP.PCM.DIS ---
Provider - Provider Date of Admission: 11/20/16 12:50 Attending physician: Shima Cornell MD Time Spent in preparation of Discharge (in minutes): 30 Diagnosis - Discharge Diagnosis (1) NSTEMI (non-ST elevated myocardial infarction) Status: Chronic Hospital Course - Lab Results Lab Results: Micro Results 11/20/16 17:49 Naris MRSA Culture (Admit) - Final MRSA NOT DETECTED 11/20/16 17:49 Urine,Catheterized Urine Culture - Final No Growth (<1,000 CFU/ML) Most Recent Lab Values WBC 6.8 K/uL (4.8-10.8) D 11/26/16 05:10 RBC 4.56 Mil/uL (3.80-5.20) 11/26/16 05:10 Hgb 13.8 g/dL (12.0-16.0) 11/26/16 05:10 Hct 39.9 % (34.0-47.0) 11/26/16 05:10 MCV 87.6 fl (81.0-99.0) 11/26/16 05:10 MCH 30.2 pg (27.0-31.0) 11/26/16 05:10 MCHC 34.5 g/dL (33.0-37.0) 11/26/16 05:10 RDW 13.3 % (11.5-14.5) 11/26/16 05:10 Plt Count 194 K/uL (130-400) 11/26/16 05:10 MPV 9.9 fl (7.2-11.7) 11/25/16 04:20 Neut % (Auto) 39.2 % (50.0-75.0) L 11/25/16 04:20 Lymph % (Auto) 49.9 % (20.0-40.0) H 11/25/16 04:20 Howell % (Auto) 7.5 % (0.0-10.0) 11/25/16 04:20 Eos % (Auto) 3.0 % (0.0-4.0) 11/25/16 04:20 Baso % (Auto) 0.4 % (0.0-2.0) 11/25/16 04:20 Neut # 1.6 K/uL (1.8-7.0) L 11/25/16 04:20 Lymph # 2.0 K/uL (1.0-4.3) 11/25/16 04:20 Howell # 0.3 K/uL (0.0-0.8) 11/25/16 04:20 Eos # 0.1 K/uL (0.0-0.7) 11/25/16 04:20 Baso # 0.0 K/uL (0.0-0.2) 11/25/16 04:20 ESR 25 mm/hr (0-20) H 11/24/16 06:00 Retic Count 2.6 % (0.5-1.5) H 11/20/16 06:10 PT 9.8 Seconds (9.8-13.1) 11/25/16 04:20 INR 1.0 (0.9-1.2) 11/25/16 04:20 APTT 26.8 Seconds (25.6-37.1) 11/25/16 04:20 D-Dimer, Quantitative 809 ng/mlDDU (0-230) H 11/21/16 20:00 Sodium 140 mmol/l (132-148) 11/26/16 05:20 Potassium 4.8 MMOL/L (3.6-5.0) 11/26/16 05:20 Chloride 102 mmol/L (98-107) 11/26/16 05:20 Carbon Dioxide 28 mmol/L (22-30) 11/26/16 05:20 Anion Gap 14 (10-20) 11/26/16 05:20 BUN 14 mg/dl (7-17) 11/26/16 05:20 Creatinine 0.8 mg/dL (0.7-1.2) 11/26/16 05:20 Est GFR ( Amer) > 60 11/26/16 05:20 Est GFR (Non-Af Amer) > 60 11/26/16 05:20 Random Glucose 103 mg/dL (65-105) 11/26/16 05:20 Calcium 9.6 mg/dL (8.4-10.2) 11/26/16 05:20 Magnesium 2.0 MG/DL (1.6-2.3) 11/25/16 04:20 Erythropoietin 4.6 mIU/mL (2.6-18.5) 11/20/16 06:10 Total Bilirubin 0.3 mg/dl (0.2-1.3) 11/25/16 04:20 AST 43 U/L (14-36) H 11/25/16 04:20 ALT 70 U/L (9-52) H 11/25/16 04:20 Alkaline Phosphatase 69 U/L (38-126) 11/25/16 04:20 CK-MB (Mass) 1.66 ng/mL (0.0-3.38) 11/20/16 16:29 Troponin I 0.4330 ng/mL (0.00-0.120) H* 11/23/16 20:45 NT-Pro-B Natriuret Pep 3840 pg/ml (0-450) H 11/22/16 04:25 Total Protein 6.4 G/DL (6.3-8.2) 11/25/16 04:20 Albumin 3.7 g/dL (3.5-5.0) 11/25/16 04:20 Globulin 2.7 gm/dL (2.2-3.9) 11/25/16 04:20 Albumin/Globulin Ratio 1.3 (1.0-2.1) 11/25/16 04:20 Triglycerides 209 mg/DL (0-149) H 11/23/16 05:30 Cholesterol 142 mg/dL (0-199) 11/23/16 05:30 LDL Cholesterol Direct 89 mg/dL (0-129) 11/23/16 05:30 HDL Cholesterol 28 MG/DL (30-70) L 11/23/16 05:30 Lipase 43 U/L (23-300) 11/19/16 23:20 Free T4 1.14 ng/dL (0.78-2.19) 11/24/16 06:00 Total T3 1.00 nmol/L (1.49-2.60) L 11/24/16 05:30 TSH 3rd Generation 2.74 mIU/ML (0.46-4.68) 11/24/16 05:30 Urine Color Tia (YELLOW) 11/20/16 17:49 Urine Clarity Cloudy (Clear) 11/20/16 17:49 Urine pH 7.0 (5.0-8.0) 11/20/16 17:49 Ur Specific [place] 1.024 (1.003-1.030) 11/20/16 17:49 Urine Protein >=500 mg/dL (NEGATIVE) 11/20/16 17:49 Urine Glucose (UA) 50 mg/dL (Normal) 11/20/16 17:49 Urine Ketones Trace mg/dL (NEGATIVE) 11/20/16 17:49 Urine Blood Negative (NEGATIVE) 11/20/16 17:49 Urine Nitrate Negative (NEGATIVE) 11/20/16 17:49 Urine Bilirubin Negative (NEGATIVE) 11/20/16 17:49 Urine Urobilinogen 0.2-1.0 mg/dL (0.2-1.0) 11/20/16 17:49 Ur Leukocyte Esterase Neg Vinicio/uL (Negative) 11/20/16 17:49 Urine RBC (Auto) 1 /hpf (0-3) 11/20/16 17:49 Urine Microscopic WBC 4 /hpf (0-5) 11/20/16 17:49 Ur Squamous Epith Cells 17 /hpf (0-5) H 11/20/16 17:49 Urine Bacteria Rare (<OCC) 11/20/16 17:49 Urine HCG, Qual Negative (NEGATIVE) 11/21/16 20:00 Urine Opiates Screen Negative (NEGATIVE) 11/20/16 02:44 Urine Methadone Screen Positive (NEGATIVE) 11/20/16 02:44 Ur Barbiturates Screen Negative (NEGATIVE) 11/20/16 02:44 Ur Phencyclidine Scrn Negative (NEGATIVE) 11/20/16 02:44 Ur Amphetamines Screen Negative (NEGATIVE) 11/20/16 02:44 U Benzodiazepines Scrn Negative (NEGATIVE) 11/20/16 02:44 U Oth Cocaine Metabols Negative (NEGATIVE) 11/20/16 02:44 U Cannabinoids Screen Negative (NEGATIVE) 11/20/16 02:44 Alcohol, Quantitative < 10 mg/dl (0-10) 11/19/16 23:20 Hepatitis A IgM Ab Nonreactive (Nonreactive) 11/23/16 05:30 Hepatitis A Ab Total Reactive (Nonreactive) 11/23/16 05:30 Hep Bs Antigen Negative (NEGATIVE) 11/22/16 04:25 Hep Bs Antibody Negative (NEGATIVE) 11/22/16 04:25 Hepatitis C Antibody Reactive (NEGATIVE) 11/22/16 04:25 Hepatitis C RNA <15 not detected IU/mL (<15) 11/22/16 04:25 HCV RNA Quant (PCR) <1.18 not detected Log IU/mL (<1.18) 11/22/16 04:25 HIV-1 Ab Rapid Screen Non reactive (NON REAC) 11/22/16 04:25 Discharge Exam - Head Exam Head Exam: ATRAUMATIC, NORMAL INSPECTION, NORMOCEPHALIC - Eye Exam Eye Exam: EOMI, Normal appearance, PERRL Pupil Exam: NORMAL ACCOMODATION, PERRL - ENT Exam ENT Exam: Mucous Membranes Dry, Normal Exam - Respiratory Exam Respiratory Exam: Clear to PA & Lateral, NORMAL BREATHING PATTERN. absent: Wheezes, Respiratory Distress - Cardiovascular Exam Cardiovascular Exam: REGULAR RHYTHM, +S1, +S2 - GI/Abdominal Exam GI & Abdominal Exam: Normal Bowel Sounds - Neurological Exam Neurological exam: Alert, CN II-XII Intact, Normal Gait, Oriented x3, Reflexes Normal - Psychiatric Exam Psychiatric exam: Normal Affect, Normal Mood - Skin Skin Exam: Dry, Intact, Normal Color, Warm Discharge Plan - Discharge Medications Prescriptions: Aspirin [Adult Low Dose Aspirin EC] 81 mg PO DAILY #30 tablet. Acetaminophen/Butalbital/Caf [Fioricet] 1 tab PO Q4 PRN #20 tab PRN Reason: Headache Atorvastatin [Lipitor] 10 mg PO DAILY #30 tab Lisinopril [Zestril] 10 mg PO DAILY #30 tab - Follow Up Plan Condition: FAIR Disposition: HOME/ ROUTINE Instructions: Dehydration (DC) Additional Instructions: patient cleared for discharge to home today by Dr.Seman and Saleh Maurer rx sent to pharmacy pt. will f/u with PMD in 1 week
[2016-11-26 16:44] VITALS: BP 112/68; PULSE 67; RESP 14; TEMP 98.1; O2SAT 96
== END 2016-11-26 17:41 | disposition home or self-care (01) | DRG 582 ==
LOC: H.ER 22:25 → UNDOADMOB 11-20 00:50 → H.ERHOLD 11-20 00:50 → H.TEL 11-20 05:27 → OBSVTOIN 11-20 12:50 → H.ICU/CCU 11-20 16:55 → H.TEL 11-25 22:09
PROVIDERS: ADMIT Internal Medicine; ATTEND Internal Medicine
DX: T40.3X1A Poisoning by methadone, accidental (unintentional), initial encounter (principal); N17.9 Acute kidney failure, unspecified; I21.4 Non-ST elevation (NSTEMI) myocardial infarction; I50.30 Unspecified diastolic (congestive) heart failure; I11.0 Hypertensive heart disease with heart failure; D69.6 Thrombocytopenia, unspecified; I27.2 Other secondary pulmonary hypertension; F11.23 Opioid dependence with withdrawal; E86.0 Dehydration; I07.1 Rheumatic tricuspid insufficiency; I95.2 Hypotension due to drugs; D75.1 Secondary polycythemia; Z87.891 Personal history of nicotine dependence; Z79.82 Long term (current) use of aspirin; A09 Infectious gastroenteritis and colitis, unspecified; Z79.899 Other long term (current) drug therapy; Z90.49 Acquired absence of other specified parts of digestive tract